=== PATIENT | female | born 1970 | race Caucasian/White ===

== ENCOUNTER 2022-03-21 18:16 | Emergency (ER) | payer MEDICARE, MEDICAID, SELFPAY ==
[2022-03-21 18:18] VITALS: BP 157/73; PULSE 74; RESP 16; TEMP 37.1; O2SAT 98; BMI 27.4
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
--- NOTE | 2022-03-21 18:27 | XR_ITS ---
PROCEDURE INFORMATION: Exam: XR Chest Exam date and time: 03/21/2022 6:32 PM Age: 51 years old Clinical indication: Chest wall pain; Additional info: Left chest wall pain S/P back manipulation TECHNIQUE: Imaging protocol: XR of the chest. Views: 1 view. COMPARISON: No relevant prior studies available. FINDINGS: Airway: Patent Lungs: Unremarkable. No consolidation. Pleural spaces: Unremarkable. No pleural effusion. No pneumothorax. Heart/Mediastinum: Unremarkable. No cardiomegaly. Bones/joints: No acute skeletal abnormality or aggressive osseous lesion. IMPRESSION: No acute findings. COMMENTS: Consider correlation with chest CTA if clinically warranted.
[2022-03-21 18:59] VITALS: BP 157/73; PULSE 74; RESP 16; TEMP 36.8; O2SAT 98
== END 2022-03-21 19:09 | disposition home or self-care (01) ==
PROVIDERS: Emergency Provider Emergency Medicine
DX: M54.12 Radiculopathy, cervical region (principal)
CPT/HCPCS: 71045; 96372; 99283

== ENCOUNTER 2022-09-30 08:36 | Emergency (ER) | payer MEDICARE, MEDICAID, SELFPAY ==
[2022-09-30 08:38] VITALS: BP 153/79; PULSE 68; RESP 16; TEMP 36.9; O2SAT 97; BMI 25.7
[2022-09-30 08:43] VITALS: BP 153/79; PULSE 66; O2SAT 97
--- NOTE | 2022-09-30 08:51 | XR_ITS ---
FINAL REPORT CLINICAL HISTORY: fall, rt rib pain FINDINGS: A single view of the chest with 3 views of the ribs were obtained. There is no acute cardiopulmonary process. No pneumothorax is identified. No displaced rib fracture identified. IMPRESSION: No acute process. Reviewed, Interpreted and Dictated by Henrique Cordon MD Transcribed by Angelina Capellan Authenticated and . [facility]
--- NOTE | 2022-09-30 08:51 | XR_ITS ---
FINAL REPORT CLINICAL HISTORY: fall, rt shoulder pain FINDINGS: Right shoulder Three views were obtained. There is no acute fracture or dislocation. The joint spaces appear normal. No soft tissue abnormality is identified. IMPRESSION: No acute process. Reviewed, Interpreted and Dictated by Henrique Cordon MD Transcribed by Angelina Capellan Authenticated and [facility]
--- NOTE | 2022-09-30 08:52 | PC.NURSE ---
Notified rad of films
--- NOTE | 2022-09-30 08:53 | HMH.EDGENADL ---
Discharge Plan Disposition Patient Disposition: Home, Self-Care Condition: Good Prescriptions Prescriptions: New hydrocodone-acetaminophen 5-325 mg tablet 1 tab PO Q6H PRN (Reason: pain) Qty: 20 0RF Referrals Follow up/Referrals: Provider,Referral, [Primary Care Provider] - See instructions Scout Mckinney DO [Staff Physician] - See instructions Activity Restrictions/Add. Instructions Additional Instructions/Restrictions: Sling for right shoulder for 3 to 5 days. Follow-up with orthopedics, Dr. Mckinney, for further evaluation or possible rotator cuff injury right shoulder and rib fractures. Additional instructions for RIB INJURIES: See your physician as soon as possible for further evaluation. Hold a pillow against your injured ribs to help with pain when coughing or sneezing. Sleep with several pillows to help support you in the most comfortable position. Take deep breaths frequently. Use incentive spirometer 4-5 times a day. Return immediately if shortness of breath, intolerable pain, coughing of blood, abdominal pain or vomiting. Clinical Impressions Clinical Impression: Fracture, rib, Shoulder sprain Instructions Patient Instructions: DI for Rib Fracture, How to Use a Sling, DI for Rotator Cuff Injury Discharge ED Provider: Balwinder Rasmussen General Adult HPI General Chief complaint: Fall Stated complaint: ao 09/28 R shoulder and rib pain Time Seen by Provider: 09/30/22 08:50 Mode of Arrival: Ambulatory Source of Information: Patient Limitations: No Limitations Description of Symptoms (Recalled from ER Triage Doc. by RN): PT advises she fell off of a barstoll Monday night and landed on her right side. Pt c/o pain in the right shoulder and right rib area. No obivous deformity noted during assessment. PT had some bruising and skin tears to the elbow. But denies any pain in the elbow History of Present Illness HPI narrative: Patient states she fell off of a stool on Monday, 2 days ago. She landed on her right side. She has pain in her posterior right shoulder and in her lateral and posterior right ribs. She finds it hard to raise her right arm. Her ribs hurt when she breathes and coughs. She has some abrasions on her right elbow but no pain in the elbow. No numbness or weakness. Related Data Previous Rx's Medication Instructions Recorded hydrocodone 5 mg-acetaminophen 325 1 tab PO Q6H PRN pain #20 tabs 09/30/22 mg tablet Allergies Allergy/AdvReac Type Severity Reaction Status Date / Time Sulfa (Sulfonamide Allergy Verified 03/21/22 18:55 Antibiotics) PFSH [facility] Social History Smoking Status: Never smoker ROS Obtained: Yes Systems reviewed as appropriate & no additional complaints except as documented Constitutional Constitutional: Denies weakness Respiratory Respiratory: Denies shortness of breath, Reports pain on inspiration and Reports pain with cough Musculoskeletal Musculoskeletal: Reports as per HPI and Denies numbness Neurologic Neurologic: Denies numbness and Denies weakness Physical Exam General General appearance: alert and in no apparent distress Head Head exam: atraumatic and normocephalic Chest Chest inspection: Present normal inspection, symmetric chest wall rise and tenderness (Right lateral ribs) Expanded Chest Exam Trauma: Absent crepitus, laceration, abrasion, ecchymosis, wound or penetrating wound Respiratory Respiratory exam: Present normal lung sounds bilaterally; Absent respiratory distress Cardiovascular Cardiovascular exam: Present regular rate Expanded Upper Extremity Exam Right: Comment: Tender posterior right shoulder. No edema, ecchymosis, abrasions, effusion. Distal neurovascular status intact. Can abduct to 90 degrees. Pain when she attempts to abduct further than this. Distal neurovascular status intact. Abrasions right elbow. No effusion. Full range of motion. Neurological Exam Neurological exam: P
[2022-09-30 09:22] VITALS: BP 134/62; PULSE 58; O2SAT 98
--- NOTE | 2022-09-30 09:40 | PC.NURSE ---
Called respiratory for incentive spirometer for patient.
--- NOTE | 2022-09-30 09:45 | PC.NURSE ---
RT at BS for incentive spirometer
[2022-09-30 09:50] VITALS: BP 149/55; PULSE 64; RESP 16; TEMP 36.9; O2SAT 97
== END 2022-09-30 09:53 | disposition home or self-care (01) ==
PROVIDERS: Emergency Provider Emergency Medicine
DX: S43.401A Unspecified sprain of right shoulder joint, initial encounter; S22.31XA Fracture of one rib, right side, initial encounter for closed fracture; W08.XXXA Fall from other furniture, initial encounter; Z88.2 Allergy status to sulfonamides
CPT/HCPCS: 71101; 73030; 99283

== ENCOUNTER → 2023-01-18 16:01 | Outpatient (CLI) | payer MEDICARE, MEDICAID, SELFPAY ==
--- NOTE | 2023-01-18 16:29 | XR_ITS ---
FINAL REPORT CLINICAL HISTORY: right jaw pain COMPARISON: none FINDINGS: Four views of the mandible were obtained. There is no acute fracture or dislocation. No focal bony mass. The joint spaces are intact. There is no soft tissue abnormality. IMPRESSION: No acute fracture Reviewed, Interpreted and Dictated by Cain Mcdonnell III, MD Transcribed by Trupti Reyes Authenticated and [facility]
== END ==
PROVIDERS: PCP Family Medicine; Visit Provider Family Medicine
DX: R68.84 Jaw pain (principal)
CPT/HCPCS: 70110

== ENCOUNTER 2023-06-12 17:15 | Emergency (ER) | payer MEDICARE, MEDICAID, SELFPAY ==
[2023-06-12 17:16] VITALS: BP 160/83; PULSE 78; RESP 18; TEMP 36.8; O2SAT 96; BMI 27.4
[2023-06-12 17:27] LABS: Microscopic, Urine URINE MICROSCOPIC (MICROSCOPIC)
[2023-06-12 17:35] LABS: Appearance,Urine CLOUDY (Clear); Bilirubin,Urine 1+ (Negative); Blood, Urine 3+ (Negative); Color,Urine YELLOW (Yellow); Glucose,Urine (UA) Negative (Negative); Ketones,Urine TRACE (Negative); Leukocyte Esterase,Urine 2+ (Negative); Nitrate,Urine POSITIVE (Negative); PH,Urine 6.5 (5.0-8.5); Protein,Urine 2+ (Negative); Specific Gravity, Urine 1.025 (1.005-1.030)
--- NOTE | 2023-06-12 17:47 | HMH.EDGENADL ---
Discharge Plan Disposition Patient Disposition: Home, Self-Care Prescriptions Prescriptions: New nitrofurantoin monohyd/m-cryst 100 mg capsule 100 mg PO BID 5 Days Qty: 10 0RF Rx Instructions: must administer with a meal/food No Action albuterol sulfate 90 mcg/actuation HFA aerosol inhaler inhalation epinephrine 0.3 mg/0.3 mL auto-injector 0.3 ml SQ .prn Patient Comments: INJECT CONTENTS OF 1 AUTOINJECTOR INTO THE APPROPRIATE MUSCLE 1 TIME DIRECTED BY PRESCRIBER FOR ALLERGIC REACTION allopurinol 100 mg tablet 100 mg PO DAILY fluticasone furoate-vilanterol [Breo Ellipta] 100-25 mcg/dose blister with device 1 inh inhalation Patient Comments: INHALE 1 DOSE 1 TIME EACH DAY atenolol 50 mg tablet 50 mg PO DAILY fluticasone propionate 50 mcg/actuation spray,suspension 1 spray intranasal Patient Comments: SPRAY 2 TIMES IN EACH NOSTRIL 1 TIME EACH DAY hydroxychloroquine 200 mg tablet 200 mg PO DAILY furosemide 20 mg tablet 20 mg PO DAILY Patient Comments: TAKE 1 TABLET 2 TIMES EACH DAY levothyroxine 125 mcg tablet 125 mcg PO DAILY pantoprazole 40 mg tablet,delayed release (DR/EC) 40 mg PO DAILY Patient Comments: TAKE 1 TABLET 2 TIMES EACH DAY cyclobenzaprine 10 mg tablet 10 mg PO DAILY fluoxetine 40 mg capsule 40 mg PO DAILY guaifenesin [Mucinex] 600 mg tablet extended release 12hr 600 mg PO BID cholecalciferol (vitamin D3) 125 mcg (5,000 unit) capsule 125 mcg PO DAILY amoxicillin-pot clavulanate [Augmentin] 500-125 mg tablet 1 tab PO TID Qty: 30 0RF hydrocodone-acetaminophen 5-325 mg tablet 1 tab PO Q6H PRN (Reason: pain) Qty: 20 0RF Referrals Follow up/Referrals: Maico Wahl MD [Primary Care Provider] - See instructions Activity Restrictions/Add. Instructions Additional Instructions/Restrictions: Return with severe back pain or high fevers or without any significant improvement within 1 week. Clinical Impressions Clinical Impression: UTI (urinary tract infection), uncomplicated Instructions Patient Instructions: DI for Urinary Tract Infection (UTI), DI for Urinary Tract Infection in Children Discharge ED Provider: Kathy Villalpando General Adult HPI General Chief complaint: Urogenital-Female Stated complaint: poss UTI,blood in urine Time Seen by Provider: 06/12/23 17:47 Mode of Arrival: Ambulatory Source of Information: Patient Limitations: No Limitations Description of Symptoms (Recalled from ER Triage Doc. by RN): Patient reports a 2 day history of pain with urination. States she thinks she may have a UTI. History of Present Illness HPI narrative: 53-year-old female presenting today with dysuria and some slight hematuria for the last 24 hours. She denies any flank pain or fevers. No significant abdominal pain or any other symptoms. She states she had urinary tract infections in the past and this feels similar. No antibiotic allergies aside from sulfa. Related Data Home Medications Medication Instructions Recorded Confirmed albuterol sulfate 90 mcg/actuation inhalation 01/18/23 02/01/23 aerosol inhaler allopurinol 100 mg tablet 100 mg PO DAILY 01/18/23 02/01/23 atenolol 50 mg tablet 50 mg PO DAILY 01/18/23 02/01/23 cholecalciferol (vitamin D3) 125 125 mcg PO DAILY 01/18/23 02/01/23 mcg (5,000 unit) capsule cyclobenzaprine 10 mg tablet 10 mg PO DAILY 01/18/23 02/01/23 epinephrine 0.3 mg/0.3 mL 0.3 ml SQ .prn 01/18/23 02/01/23 injection, auto-injector fluoxetine 40 mg capsule 40 mg PO DAILY 01/18/23 02/01/23 fluticasone furoate 100 1 inh inhalation 01/18/23 02/01/23 mcg-vilanterol 25 mcg/dose inhalation powder (Breo Ellipta) fluticasone propionate 50 1 spray intranasal 01/18/23 02/01/23 mcg/actuation nasal spray,suspension furosemide 20 mg tablet 20 mg PO DAILY 01/18/23 02/01/23 guaifenesin 600 mg tablet, 600 mg PO BID
[2023-06-12 17:53] LABS: Bacteria,Urine 2+ /lpf; WBC,Urine TNTC #/hpf (0-3)
[2023-06-12 18:08] VITALS: BP 149/75; PULSE 71; RESP 18; TEMP 36.7; O2SAT 99
== END 2023-06-12 18:09 | disposition home or self-care (01) ==
PROVIDERS: Emergency Provider Student in an Organized Health Care Education/Training Program; PCP Family Medicine
DX: N39.0 Urinary tract infection, site not specified (principal); R31.9 Hematuria, unspecified; I10 Essential (primary) hypertension; M10.9 Gout, unspecified
CPT/HCPCS: 81001; 87086; 87088; 87186; 99283

== ENCOUNTER → 2023-06-13 16:50 | Outpatient (CLI) | payer MEDICARE, MEDICAID, SELFPAY ==
[2023-06-13 16:47] LABS: Basophils % 0.5 % (0.1-2.0); Eosinophils # 0.1 K/mm3 (0.0-0.4); Eosinophils % 1.4 % (0.1-12.0); Hematocrit 43.5 % (37.0-47.0); Hemoglobin 13.7 g/dL (12.2-16.2); Lymphocytes # 1.5 K/mm3 (0.7-4.5); Lymphocytes % 24.9 % (10-50); Mean Corpuscular HGB Conc 31.5 g/dL (31.8-35.4); Mean Corpuscular Hemoglobin 31.2 pg (27.0-31.2); Mean Corpuscular Volume 98.9 fl (81-99); Mean Platelet Volume 9.4 fl (7.4-10.4); Monocytes # 0.3 K/mm3 (0.1-1.0); Neutrophils % 68.2 % (37.0-80.0); Platelet Count 160 K/mm3 (142-424); Red Blood Count 4.39 M/mm3 (4.20-5.40); Red Cell Distribution Width 13.5 % (11.5-17.5); White Blood Count 5.8 K/mm3 (4.8-10.8)
[2023-06-13 16:55] LABS: Alanine Aminotransferase 48 U/L (12-78); Albumin/Globulin Ratio 1.2 (1.1-1.8); Alkaline Phosphatase 212 U/L (38-126); Anion Gap 8.9 mEq/L (5-15); Aspartate Amino Transferase 67 U/L (14-36); Bilirubin,Total 1.5 mg/dl (0.2-1.3); Blood Urea Nitrogen 7 mg/dl (7-17); Calcium 8.9 mg/dl (8.4-10.2); Carbon Dioxide 31 mmol/L (22.0-30.0); Chloride 101 mmol/L (98-107); Chol/HDL Ratio 2.3 (1-3.5); Cholesterol 204 mg/dl (140-200); Estimated Glomerular Filt Rate 75 ml/min (>60); GFR (African American) 90 ML/MIN (>60); Globulin 3.3 g/dL (1.3-3.2); Glucose 95 mg/dl (74-100); HDL Cholesterol 87 mg/dl (40-60); Potassium 3.9 mmoL/L (3.5-5.1); Sodium 137 mmol/L (136-145); Total Protein,Serum 7.3 g/dl (6.3-8.2); Triglycerides 129 mg/dl (30-150); VLDL Cholesterol 26 mg/dL (0-40)
[2023-06-13 17:07] LABS: Direct LDL Cholesterol 95.31 mg/dL (100-129)
[2023-06-13 17:26] LABS: Thyroid Stimulating Hormone 3.49 uIU/mL (0.465-4.68)
[2023-06-13 17:45] LABS: Vitamin B12 496 pg/mL (239-931)
== END ==
PROVIDERS: PCP Family Medicine; Visit Provider Family Medicine
DX: I10 Essential (primary) hypertension (principal); E03.9 Hypothyroidism, unspecified; Z00.00 Encounter for general adult medical examination without abnormal findings; E53.8 Deficiency of other specified B group vitamins
CPT/HCPCS: 80053; 80061; 82607; 84443; 85025

== ENCOUNTER → 2023-10-26 11:59 | Outpatient (CLI) | payer MEDICARE, MEDICAID, SELFPAY ==
--- NOTE | 2023-10-26 12:06 | CT_ITS ---
FINAL REPORT TECHNIQUE: Axial images were obtained through the chest without contrast. CLINICAL HISTORY: soa, nodules COMPARISON: None FINDINGS: There are multiple nodules on the left side. There is a 3 mm nodule in the periphery of the left upper lobe, best seen on image #22 of series #2. There is a 3 mm nodule in the left lower lobe, best seen on image #44 of series 2. There is a nodule measuring 4 mm in size in the posterior left lower lobe, best seen on image #47 of series 2. The heart size is normal. There is no pericardial or pleural effusion. Limited images of the upper abdomen are unremarkable. IMPRESSION: Several less than 5 mm in size nodules are present in the chest as described. According to Fleischner criteria, a 1 year follow-up chest CT is recommended. Reviewed, Interpreted and Dictated by Henrique Cordon MD Transcribed by Kenna Garnica Authenticated and [facility]
== END ==
PROVIDERS: PCP Family Medicine; Visit Provider Internal Medicine Pulmonary Disease
DX: J84.9 Interstitial pulmonary disease, unspecified; R06.09 Other forms of dyspnea
CPT/HCPCS: 71250; 94060; 94618; 94726; 94729

== ENCOUNTER 2023-11-15 12:02 | Outpatient (CLI) | payer MEDICARE, MEDICAID, SELFPAY ==
[2023-11-15 12:47] LABS: Eosinophils # 0.1 K/mm3 (0.0-0.4); Eosinophils % 1.7 % (0.1-12.0); Hematocrit 44.2 % (37.0-47.0); Hemoglobin 14.7 g/dL (12.2-16.2); Lymphocytes # 1.2 K/mm3 (0.7-4.5); Lymphocytes % 29.6 % (10-50); Mean Corpuscular HGB Conc 33.3 g/dL (31.8-35.4); Mean Corpuscular Hemoglobin 32.6 pg (27.0-31.2); Mean Corpuscular Volume 98.1 fl (81-99); Mean Platelet Volume 8.3 fl (7.4-10.4); Monocytes # 0.3 K/mm3 (0.1-1.0); Monocytes % 6.2 % (1.7-9.3); Neutrophils # 2.5 K/mm3 (1.8-7.8); Neutrophils % 61.4 % (37.0-80.0); Platelet Count 178 K/mm3 (142-424); White Blood Count 4.1 K/mm3 (4.8-10.8)
[2023-11-18 01:11] LABS: D001-IgE D pteronyssinus 0.14 kU/L (Class 0/I); D002-IgE D farinae 0.12 kU/L (Class 0/I); E072-IgE Mouse Urine 0.34 kU/L (Class I); G002-IgE Bermuda Grass <0.10 kU/L (Class 0); G006-IgE Timothy Grass <0.10 kU/L (Class 0); I006-IgE Cockroach, German 5.25 kU/L (Class IV); Immunoglobulin E, Total 2535 IU/mL (6-495); M001-IgE Penicillium chrysogen <0.10 kU/L (Class 0); M002-IgE Cladosporium herbarum 0.17 kU/L (Class 0/I); M003-IgE Aspergillus fumigatus 1.05 kU/L (Class II); M006-IgE Alternaria alternata <0.10 kU/L (Class 0); T001-IgE Maple/Box Elder 0.47 kU/L (Class I); T003-IgE Common Silver Birch <0.10 kU/L (Class 0); T006-IgE Cedar, Mountain 0.65 kU/L (Class II); T007-IgE Oak, White <0.10 kU/L (Class 0); T008-IgE Elm, American 0.12 kU/L (Class 0/I); T010-IgE Walnut <0.10 kU/L (Class 0); T011-IgE Maple Leaf Sycamore 0.16 kU/L (Class 0/I); T014-IgE Cottonwood 0.12 kU/L (Class 0/I); T015-IgE Ash, White <0.10 kU/L (Class 0); T022-IgE Pecan, Hickory <0.10 kU/L (Class 0); T070-IgE White Mulberry <0.10 kU/L (Class 0); W001-IgE Ragweed, Short <0.10 kU/L (Class 0); W011-IgE Thistle, Russian 0.52 kU/L (Class I); W014-IgE Pigweed, Common 0.11 kU/L (Class 0/I); W018-IgE Sheep Sorrel <0.10 kU/L (Class 0)
[2023-11-29 08:29] LABS: Antinuclear Antibodies (ANA) Negative
== END 2023-11-15 23:59 ==
LOC: LAB 12:03
PROVIDERS: PCP Family Medicine; Visit Provider Internal Medicine Pulmonary Disease
DX: J30.9 Allergic rhinitis, unspecified (principal); J84.9 Interstitial pulmonary disease, unspecified
CPT/HCPCS: 36415; 82785; 85025; 86003; 86038; 86225; 86235

== ENCOUNTER 2024-01-02 19:45 | Outpatient (CLI) | payer MEDICARE, MEDICAID, SELFPAY ==
[2024-01-02 17:15] LABS: T4 (Thyroxine) 6.9 ug/dl (5.53-11.0)
[2024-01-02 17:28] LABS: Thyroid Stimulating Hormone 1.14 uIU/mL (0.465-4.68)
[2024-01-03 17:10] LABS: Thyroglobulin Level <1.0 IU/mL (0.0-0.9)
== END 2024-01-02 23:59 ==
PROVIDERS: PCP Family Medicine; Visit Provider Family Medicine
DX: E03.9 Hypothyroidism, unspecified (principal); R53.83 Other fatigue
CPT/HCPCS: 84436; 84443; 86800

== ENCOUNTER 2024-01-04 10:12 | Outpatient (CLI) | payer MEDICARE, MEDICAID, SELFPAY | END 2024-01-04 23:59 | PROVIDERS: PCP Family Medicine; Visit Provider Nurse Practitioner Family | DX: R00.1 Bradycardia, unspecified (principal); R00.2 Palpitations; R06.09 Other forms of dyspnea | CPT/HCPCS: 93270 ==

== ENCOUNTER 2024-01-19 09:21 | Outpatient (CLI) | payer MEDICARE, MEDICAID, SELFPAY ==
--- NOTE | 2024-01-19 | CA_ITS ---
APPROVED REPORT Exam: Pharmacologic Technologist: Elaine France, Ht: 5 ft 4 in Wt: 170 lbs BSA: 1.83 m2 HR: 56 bpm BP: 154/70 mmHg Rhythm: Sinus bradycardia Indications: Dyspnea Medical History Medical History: HTN Medications: Levothyroxine,,,,, Allopurinol,,,,, Pantoprazole,,,,, Albuterol,,,,, Montelukast,,,,, Vit D3,,,,, Diclofenac,,,,, FluTICASONE,,,,, Fluoxetine,,,,, Cyclobenzaprine,,,,, BREo Eliipta,,,,, Guaifenesin,,,,, Allergies: SULFA Cardiac Risk Factors: HTN Stress Test Details Test: LEXISCAN HR Resting HR: 59 bpm Max Heart Rate (APMHR): 166 bpm Max HR Achieved: 76 bpm Target HR (85% APMHR): 141 bpm % of APMHR: 46 Recovery HR: 61 bpm BP Resting BP: 154/70 mmHg Max BP: 154/70 mmHg Recovery BP: 147.0/69.0 mmHg ECG Resting ECG: Sinus bradycardia Stress ECG: No significant ST changes Arrhythmia: None Clinical Exercise duration: 04:00 min Highest Stage Achieved: Exercise capacity: 1.0 METs Stress ECG Conclusion NO SIGNIFICANT ST CHANGES UNREMARKABLE LEXISCAN STRESS MYOVIEW IMAGES REPORTED SEPARATELY Test Summary REST . . . . . . . Sitting REST 02:34 . . 59 . 154/ 70 . . Stage 1 01:00 . . 73 . . . . Stage 2 01:00 . . 67 . 137/ 71 . . Stage 3 01:00 . . 67 . 133/ 72 . . Stage 4 01:00 . . 66 . 134/ 72 . Stop exercise at 04:00 RECOVERY 01:00 . . 72 . . . . RECOVERY 02:00 . . 61 . 147/ 69 . . RECOVERY 02:26 . . 71 . 147/ 69 . . Electronically signed by : Gabbie Kaufman MD 01/22/2024 22:02:51
--- NOTE | 2024-01-19 09:22 | CA_ITS ---
APPROVED REPORT EXAM: Comprehensive 2D, Doppler, and color-flow Echocardiogram Retail Merchandising Specialist: Charito Hernandez RDCS Ht: 5 ft 4 in Wt: 170lbs BSA: 1.83 BP: 142/78 mmHg Indications: SOA,PALPS M-Mode Dimensions RVDd 1.60 cm (0.9-2.6) LA Diam 3.55 cm (1.9-4.0) LVDd 4.57 cm (3.5-5.7) LVDs 2.91 cm (3.5-5.7) IVSd 0.72 cm (0.6-1.1) PWd 0.78 cm (0.6-1.1) EF (Teich) 66.10% FS 36.30% EDV (Teich) 95.90 mL TAPSE 3.03 (<1.7) ESV (Teich) 32.50 mL LV Diastology E Decel Time 203 (160-240 msec) E/A Ratio 1.3 Mitral Valve MV E Max Jerome. 104.0 (40-130 cm/s) MV A Velocity 78.0 (40-130 cm/s) E/A Ratio 1.33 MV PHT 60.0 ms Left Ventricle The left ventricle is normal size. The left ventricular systolic function is normal. The left ventricular ejection fraction is within the normal range. There is normal left ventricular wall thickness. There is normal LV segmental wall motion. The left ventricular diastolic function is normal. LVEF is 55%. Right Ventricle The right ventricle is normal size. The right ventricular systolic function is normal. Atria The left atrium size is normal. The right atrium size is normal. There is no Doppler evidence of interatrial shunt. Aortic Valve The aortic valve opens well. There is no aortic valvular stenosis. No aortic regurgitation is present. Mitral Valve The mitral valve is normal in structure. No evidence of mitral valve stenosis. Mild mitral regurgitation. Tricuspid Valve The tricuspid valve leaflets are thin and pliable. Trace tricuspid regurgitation. There is insufficient TR jet to estimate RVSP. Pulmonic Valve The pulmonary valve is normal in structure. Trace pulmonic regurgitation. Great Vessels The aortic root is normal in size. The proximal segment of the ascending aorta is normal in size. IVC is normal in size and collapses >50% with inspiration. Pericardium There is no pericardial effusion. Other Information Study Quality: Fair Conclusion Normal biventricular systolic function. Mild MR. Electronically signed by : Gabbie Kaufman MD 01/22/2024 22:30:40
--- NOTE | 2024-01-19 11:07 | NM_ITS ---
APPROVED REPORT Exam: Nuclear Stress Test Indication: SOB, Palpitations, Fatigue, HTN Patient Location: Outpatient Stress Tech: Elaine France CARLY Tech:Sandie CareyringtonJADA RT(R)(N) Ht: 5 ft 4 in Wt: 170 lbs Bra Size: C HR: 59 bpm BP: 154/70 mmHg BSA: 1.83 m2 TID: 1.04 BMI: 29.1 History: SOB, Palpitations, Fatigue, HTN Procedure: Patient received 0.4 mg of intravenous Lexiscan, resting heart rate 59 bpm, resting blood pressure 154/70 mmHg, with Lexiscan maximum heart rate achieved was 76 bpm which is % of the maximum predicted heart rate and blood pressure was 154/70 mmHg. With Lexiscan, patient denied any complaint of chest pain. Cardiac Stress and Resting SPECT Images: Cardiac Stress and Resting SPECT images were obtained using technetium 99m Myoview 30.7 mCi stress and 10.22 mCi at rest. Resting and stress imaging in supine and prone positions demonstrate no evidence of fixed or reversible perfusion defects. Gated imaging demonstrates normal global and regional LV systolic function. LVEF is calculated at 66%. Conclusion: No evidence of fixed or reversible perfusion defects. Gated imaging demonstrates normal global and regional LV systolic function. LVEF is calculated at 66%. Electronically signed by : Gabbie Kaufman MD 01/22/2024 22:04:14
[2024-01-19] MEDS: SODIUM CHLORIDE 0.9% 10ML SYR (RAD ONLY) 10 ML IV ×2 (13:48)
[2024-01-19] MEDS: REGADENOSON 0.4MG/5ML SYRINGE 0.400000000000000022 MG IV (13:48)
[2024-01-19] MEDS: ISOTOPE MYOVIEW (PER STUDY) 1 DOSE IV (13:48)
== END 2024-01-19 23:59 ==
PROVIDERS: PCP Family Medicine; Visit Provider Nurse Practitioner Family
DX: R00.1 Bradycardia, unspecified (principal); R06.09 Other forms of dyspnea; R00.2 Palpitations
CPT/HCPCS: 78452; 93017; 93018; 93306; A9502; J2785

== ENCOUNTER 2024-02-23 10:01 | Outpatient (CLI) | payer MEDICARE, MEDICAID, SELFPAY ==
[2024-02-23 12:51] LABS: Iron 158 ug/dL (37-170)
[2024-02-23 13:28] LABS: Ferritin 163 ng/ml (11.1-264)
[2024-02-23 14:30] LABS: Total Iron Binding Capacity 312 ug/dL (265-497)
== END 2024-02-23 23:59 ==
LOC: LAB 10:02
PROVIDERS: PCP Family Medicine; Visit Provider Nurse Practitioner Family
DX: E83.10 Disorder of iron metabolism, unspecified (principal)
CPT/HCPCS: 36415; 82728; 83540; 83550

== ENCOUNTER 2024-04-17 09:54 | Outpatient (CLI) | payer MEDICARE, MEDICAID, SELFPAY ==
[2024-04-17 11:53] LABS: Chloride 102 mmol/L (98-107); Potassium 4.1 mmoL/L (3.5-5.1); Sodium 136 mmol/L (136-145)
[2024-04-17 11:54] LABS: Albumin Level 3.9 g/dl (3.5-5.0)
[2024-04-17 11:56] LABS: Anion Gap 12.1 mEq/L (5-15); Blood Urea Nitrogen 21 mg/dl (7-17); Calcium 9.4 mg/dl (8.4-10.2); Carbon Dioxide 26 mmol/L (22.0-30.0); Estimated Glomerular Filt Rate 65 ml/min (>60); GFR (African American) 79 ML/MIN (>60); Glucose 98 mg/dl (74-100); Magnesium 2.1 mg/dl (1.6-2.3); Phosphorous 3.1 mg/dl (2.5-4.5)
[2024-04-17 12:25] LABS: Thyroid Stimulating Hormone 3.79 uIU/mL (0.465-4.68)
[2024-04-19 17:09] LABS: Osteocalcin 25.1 ng/mL (5.0-29.5)
[2024-04-22 16:12] LABS: C-Telopeptide Serum 424 pg/mL (.)
[2024-04-24 14:21] LABS: Tandem-R Ostase 38.4 ug/L (.)
[2024-04-27 10:38] LABS: Serial Monitoring PDF SCANNED IMAGE
== END 2024-04-17 23:59 | disposition home or self-care (01) ==
LOC: LAB 09:55
PROVIDERS: Internal Medicine; PCP Family Medicine; Visit Provider Family Medicine
DX: E03.9 Hypothyroidism, unspecified (principal); M85.89 Other specified disorders of bone density and structure, multiple sites
CPT/HCPCS: 36415; 80069; 82523; 83735; 83937; 84080; 84443

== ENCOUNTER 2024-04-29 10:30 | Outpatient (CLI) | payer MEDICARE, MEDICAID, SELFPAY ==
--- NOTE | 2024-04-29 10:38 | XR_ITS ---
FINAL REPORT CLINICAL HISTORY: Dyspnea. Wheezing. Chronic pneumonia. COMPARISON: None FINDINGS: No acute pulmonary density is evident. There is no evidence of effusion or other pleural disease. The mediastinum has a normal appearance. The cardiac silhouette is unremarkable. IMPRESSION: Unremarkable chest exam. Reviewed, Interpreted and Dictated by Carmen Cabrera MD Transcribed by Kenna Garnica Authenticated and [facility]
== END 2024-04-29 23:59 | disposition home or self-care (01) ==
LOC: RAD 10:33
PROVIDERS: PCP Family Medicine; Visit Provider Nurse Practitioner Family
DX: R06.09 Other forms of dyspnea (principal)
CPT/HCPCS: 71046

== ENCOUNTER 2024-07-09 15:05 | Outpatient (CLI) | payer MEDICARE, MEDICAID, SELFPAY ==
[2024-07-09 17:32] LABS: Albumin Level 3.9 g/dl (3.5-5.0); Anion Gap 10.8 mEq/L (5-15); Blood Urea Nitrogen 9 mg/dl (7-17); Calcium 9.2 mg/dl (8.4-10.2); Carbon Dioxide 26 mmol/L (22.0-30.0); Chloride 105 mmol/L (98-107); Estimated Glomerular Filt Rate 87 ml/min (>60); GFR (African American) 105 ML/MIN (>60); Glucose 76 mg/dl (74-100); Magnesium 1.8 mg/dl (1.6-2.3); Phosphorous 2.9 mg/dl (2.5-4.5); Potassium 3.8 mmoL/L (3.5-5.1); Sodium 138 mmol/L (136-145)
[2024-07-12 15:24] LABS: Osteocalcin 9.6 ng/mL (5.0-29.5)
[2024-07-12 16:30] LABS: Creatinine, Urine 54.7 mg/dL (Not Estab.); N-Telo/Creat. Ratio 18 (0-89); N-Telopeptide 88 nmol BCE (Not Estab.)
[2024-07-16 05:08] LABS: Tandem-R Ostase 37.3 ug/L (.)
[2024-07-18 21:51] LABS: C-Telopeptide Serum 139 pg/mL (.)
[2024-07-19 12:24] LABS: Serial Monitoring PDF SCANNED IMAGE
== END 2024-07-09 23:59 | disposition home or self-care (01) ==
LOC: LAB 15:07
PROVIDERS: PCP Family Medicine; Visit Provider Internal Medicine
DX: M85.89 Other specified disorders of bone density and structure, multiple sites (principal)
CPT/HCPCS: 36415; 80069; 82523; 82570; 83735; 83937; 84080

== ENCOUNTER 2024-08-08 11:19 | Outpatient (CLI) | payer MEDICARE, MEDICAID, SELFPAY | END 2024-08-08 23:59 | disposition home or self-care (01) | LOC: LAB.DROPOF 08-09 14:53 | PROVIDERS: PCP Family Medicine; Visit Provider Family Medicine | DX: R39.9 Unspecified symptoms and signs involving the genitourinary system (principal); N39.0 Urinary tract infection, site not specified | CPT/HCPCS: 87086 ==

== ENCOUNTER 2024-12-20 10:32 | Outpatient (CLI) | payer MEDICARE, MEDICAID, SELFPAY ==
[2024-12-19 16:26] LABS: Coronavirus 19, PCR Not Detected (NotDetected); Human Rhinovirus Not Detected (NotDetected); Influenza A, PCR Not Detected (NotDetected); Influenza B, PCR Not Detected (NotDetected); Respiratory Syncytial Virus Not Detected (NotDetected)
--- NOTE | 2024-12-20 10:36 | XR_ITS ---
FINAL REPORT CLINICAL HISTORY: cough; sob COMPARISON: 04/29/2024 FINDINGS: No acute pulmonary density is evident. There is no evidence of effusion or other pleural disease. The mediastinum has a normal appearance. The cardiac silhouette is unremarkable. IMPRESSION: Unremarkable chest exam. Reviewed, Interpreted and Dictated by Carmen Cabrera MD Transcribed by Radha Kramer Authenticated and [facility]
== END 2024-12-20 23:59 | disposition home or self-care (01) ==
LOC: LAB 10:33
PROVIDERS: PCP Family Medicine; Visit Provider Family Medicine
DX: R06.02 Shortness of breath (principal); R06.09 Other forms of dyspnea
CPT/HCPCS: 71046; 87631

== ENCOUNTER 2025-04-02 09:05 | Outpatient (CLI) | payer MEDICARE, MEDICAID, SELFPAY ==
[2025-04-02 17:45] LABS: Basophils % 0.9 % (0.1-2.0); Eosinophils # 0.1 Kmm3 (0.0-0.4); Eosinophils % 2.9 % (0.1-12.0); Hematocrit 40.9 % (37.0-47.0); Hemoglobin 13.4 g/dL (12.2-16.2); Immature Granulocytes # 0.02 10^3uL; Immature Granulocytes % 0.4 %; Lymphocytes # 1.4 K/mm3 (0.7-4.5); Lymphocytes % 31.2 % (10-50); Mean Corpuscular HGB Conc 32.8 g/dL (31.8-35.4); Mean Corpuscular Hemoglobin 32.4 pg (27.0-31.2); Mean Corpuscular Volume 98.8 fl (81-99); Mean Platelet Volume 10.6 fl (7.4-10.4); Monocytes # 0.5 K/mm3 (0.1-1.0); Monocytes % 10.1 % (1.7-9.3); Neutrophils # 2.5 K/mm3 (1.8-7.8); Neutrophils % 54.5 % (37.0-80.0); Nucleated Red Blood Cells # 0 10^3/uL; Nucleated Red Blood Cells % 0 %; Platelet Count 177 K/mm3 (142-424); Red Blood Count 4.14 M/mm3 (4.20-5.40); Red Cell Distribution Width 13.2 % (11.5-17.5); Red Cell Distribution Width-SD 47.8 fL; White Blood Count 4.6 K/mm3 (4.8-10.8)
[2025-04-02 19:14] LABS: Alanine Aminotransferase 34 U/L (12-78); Albumin Level 4.2 g/dl (3.5-5.0); Albumin/Globulin Ratio 1.4 (1.1-1.8); Alkaline Phosphatase 121 U/L (38-126); Aspartate Amino Transferase 50 U/L (14-36); Bilirubin,Total 0.7 mg/dl (0.2-1.3); Blood Urea Nitrogen 21 mg/dl (7-17); Calcium 8.7 mg/dl (8.4-10.2); Carbon Dioxide 28 mmol/L (22.0-30.0); Chloride 98 mmol/L (98-107); Chol/HDL Ratio 2.6 (1-3.5); Cholesterol 164 mg/dl (140-200); Estimated Glomerular Filt Rate 65 ml/min (>60); GFR (African American) 79 ML/MIN (>60); Globulin 2.9 g/dL (1.3-3.2); Glucose 66 mg/dl (74-100); HDL Cholesterol 62 mg/dl (40-60); Sodium 134 mmol/L (136-145); Total Protein,Serum 7.1 g/dl (6.3-8.2); Triglycerides 143 mg/dl (30-150); VLDL Cholesterol 29 mg/dL (0-40)
[2025-04-02 19:17] LABS: Anion Gap 12.1 mEq/L (5-15); Potassium 4.1 mmoL/L (3.5-5.1)
[2025-04-02 19:25] LABS: Direct LDL Cholesterol 63.44 mg/dL (100-129)
[2025-04-02 19:49] LABS: Thyroid Stimulating Hormone 3.02 uIU/mL (0.465-4.68)
[2025-04-02 19:57] LABS: HIV Combo NEGATIVE (Negative)
[2025-04-02 20:09] LABS: Hepatitis C Ab Qual. W/ RFX NEGATIVE (Negative); Vitamin B12 601 pg/mL (239-931)
== END 2025-04-02 23:59 | disposition home or self-care (01) ==
LOC: LAB.DROPOF 23:01
PROVIDERS: PCP Family Medicine; Visit Provider Family Medicine
DX: I10 Essential (primary) hypertension (principal); Z11.4 Encounter for screening for human immunodeficiency virus [HIV]; Z11.59 Encounter for screening for other viral diseases
CPT/HCPCS: 80053; 80061; 82607; 84443; 85025; 86803; 87389

== ENCOUNTER 2025-04-23 09:52 | Outpatient (CLI) | payer MEDICARE, MEDICAID, SELFPAY ==
--- NOTE | 2025-04-23 09:54 | XR_ITS ---
FINAL REPORT CLINICAL HISTORY: low back pain COMPARISON: None FINDINGS: LUMBAR SPINE: AP and lateral views of the lumbar spine were obtained. There is no prior exam for comparison. There is no acute fracture or malalignment. Vertebral body height is preserved. There is mild disc space narrowing at the L3-4, L4-5, and L5-S1 levels. Mild multilevel facet sclerosis is present. No acute paraspinal abnormality. IMPRESSION: Mild degenerative change as described without acute bony abnormality. Reviewed, Interpreted and Dictated by Henrique Cordon MD Transcribed by Kenna Garnica Authenticated and [facility]
--- OUTSIDE RECORDS SUMMARY | 2025-04-23 09:55 | XMS_ITS | Encounter Summary ---
Author Organization Healthcare Address [address] [place] [address] Care Team Providers Care Medical Staff Coordinator Name Role Phone Maico Wahl MD Primary Care Provider [phone]- [phone] Encounter Details Date Type Department Care Team (Late st Contact Info) Description 04/16/2024 [facility] [address] [place] [address] Maico Wahl MD [address] [place] [address] Social History Tobacco Use Types Packs/Day Years Used Date Smoking Tobacco: Never Smokeless Tobacco: Never Alcohol Use Standard Drinks/Week Comments Yes 10 (1 standard drink = 0.6 oz pu re alcohol) PHQ-2 Answer Date Recorded Patient Health Questionnaire-2 Score 0 02/09/2024 PHQ-2A Answer Date Recorded Patient Health Questionnaire-2 Score 0 06/22/2023 Comments No Sex and Gender Information Value Date Recorded Sex Assigned at Not on file Legal Sex Female 7:56 PM EDT Gender Identity Not on file Sexual Orientation Not on file documented as of this encounter Plan of Treatment Upcoming Encounters Date Type Department Care Team (Late st Contact Info) Description 05/21/2025 9:00 AM EDT Office Visit [facility] [address] [place] [address] Johana Young MD [address] [place] [address] 01/13/2026 1:00 PM EST Appointment [facility] [address] [place] [address] 01/13/2026 2:00 PM EST Office Visit [facility] [address] [facility] [place] [address] Lily Zuniga, CUFF MATCHER [address] [facility] [address] [place] [address] documented as of this encounter Visit Diagnoses Not on filedocumented in this encounter Additional Health Concerns Assessment Noted Time A fall risk assessment has been complete d for the patient 02/09/2024 11:31 AM EDT A Body Mass Index follow-up plan has been documented for the patient 02/09/2024 12:04 PM EDT documented as of this encounter Care Teams Medical Staff Coordinator Relationship Specialty Start Date End Date Maico Wahl MD [address] [place] [id number] PCP - General Family Medicine 10/10/23 documented as of this encounter
--- OUTSIDE RECORDS SUMMARY | 2025-04-23 09:55 | XMS_ITS | Encounter Summary ---
Author Organization Healthcare Address [address] [place] [address] Care Team Providers Care Fixed Wing Aircraft Crew Chief Name Role Phone Maico Wahl MD Primary Care Provider +1- [phone] Reason for Referral * Consultation (Routine) - Closed Specialty Diagnoses / Procedures Referred By Contmichael t Referred To Contact Dentist / Pain Medicine Diagnoses JAMISON (obstructive sleep apnea) Debbie Rodriguez MD [address] [place] [address] Phone: tel: fax: Annalise Collins, DDS [address] [place] [address] Phone: tel: fax: Referral ID Status Reason Start Date Expiration Date Visits Re quested Visits Authorized [id number] Closed 02/28/2024 08/29/2025 1 1 Encounter Details Date Type Department Care Team (Late st Contact Info) Description 02/28/2024 [facility] [address] [place] [address] Debbie Rodriguez MD [address] [address] JAMISON (obstructive sleep apnea) (Primary Dx) Social History Tobacco Use Types Packs/Day Years [...] Description 05/21/2025 9:00 AM EDT Office Visit [facility] [address] [place] [address] Johana Young MD [address] [place] [address] 01/13/2026 1:00 PM EST Appointment [facility] [place] [address] [address] [facility] [address] [place] [address] 01/13/2026 2:00 PM EST Office Visit [facility] [address] [facility] [place] [address] Lily Zuniga, SUPERVISING LIBRARIAN [address] [facility] [address] [address] Scheduled Referrals Name Type Priority Associated Diagnoses Order Schedule Ambulatory Referral to Orofacial Pain Outpatient Referral Routine JAMISON (obstructive sleep apnea) Expected: 02/28/2024 (Approximate), Expires: 08/29/2025 documented as of this encounter Visit Diagnoses Diagnosis JAMISON (obstructive sleep apnea)- Primary Obstructive sleep apnea (adult) (pediatric) documented in this encounter Additional Health Concerns Assessment Noted Time A fall risk assessment has been complete d for the patient 02/09/2024 11:31 AM EDT A Body Mass Index follow-up plan has been documented for the patient 02/09/2024 12:04 PM EDT documented as of this encounter Care Teams Fixed Wing Aircraft Crew Chief Relationship Specialty Start Date End Date Maico Wahl MD [address] [place] [address] PCP - General Family Medicine 10/10/23 documented as of this encounter
--- OUTSIDE RECORDS SUMMARY | 2025-04-23 09:55 | XMS_ITS | Clinical Summary ---
Author Organization [employer] Address [address] [place] [address] Care Team Providers Care Meat And Seafood Clerk Name Role Phone Unavailable Primary Care Provider Unavailabl e Allergies Active Allergy Reactions Criticality Noted Date Comments Sulfa (Sulfonamide Antibiotics) 08/13 Social History Tobacco Use Types Packs/Day Years Used Date Smoking Tobacco: Never Assessed Interpersonal Safety Answer Date Record ed Family or friends hurt you Not on file 12/01 Family or friends insult you Not on file Family or friends threaten you Not on file 0 12/01/2023 Family or friends scream or curse at you Not on file 12/01/2023 Housing Stability Answer Date Recorded Living situation today Not on file Living situation problems Not on file 2023 Family and Community Support Answer Pan e Recorded Help with Day to Day Activities Not on file 12/01/2023 Feeling Lonely or Isolated Not on file 12/01 Educational Attainment Answer Date Lamin rded Speak language other than Zimbabwean at home Not on file 12/01/2023 Want help with school or training Not on file 12/01/2023 Depression Answer Date Recorded PHQ-2 Risk Not on file 12/01/2023 Disabilities Answer Date Recorded Difficulty concentrating Not on file 024 Difficulty doing errands alone Not on file 0 12/01/2023 Substance Use Answer Date Recorded Used prescription meds for non-medical reasons N ot on file 12/01/2023 Used illegal drugs past 12 months Not on file 12/01/2023 Comments Unknown Sex and Gender Information Value Date Recorded Sex Assigned at Not on file Legal Sex Female 10:24 AM CDT Gender Identity Not on file Sexual Orientation Not on file Last Filed Vital Signs Vital Sign Reading Time Taken Comments Blood Pressure 142/89 08/22/2022 9:13 AM EDT Pulse 77 08/22/2022 9:13 AM EDT Temperature 36.3 C (97.3 F) 08/22/2022 9:03 AM EDT Respiratory Rate 18 08/22/2022 9:13 AM EDT Oxygen Saturation 97% 08/22/2022 9:13 AM EDT Inhaled Oxygen Concentration - - Weight 68 kg (150 lb) 08/22/2022 8:10 AM EDT Height 162.6 cm (5' 4 ) 08/22/2022 8:10 AM EDT Body Mass Index 25.75 08/22/2022 8:10 AM EDT Plan of Treatment Health Maintenance Due Date Last Done Comments Medicare Initial AWV [id number] CT Colonography 1969 Colonoscopy 1969 Colorectal Cancer Screening 1969 FOBT/FIT 1969 Fit-DNA (Cologuard) 1969 Sigmoidoscopy 1969 Depression Screening (12+) 1981 Tobacco Cessation Counseling and Screening (12+) 06/04 HIV Screening 1984 Hepatitis C Screening 1987 DTAP/TDAP/TD VACCINES (1 - Tdap) 1988 Pap Smear 1990 Breast Cancer Screening 2009 Pneumococcal 50+ years (1 of 1 - PCV) 2019 Shingles Vaccine (Zoster) (1 of 2) 2019 COVID-19 VACCINE (1 - season) 2024 Influenza Vaccine (Season Ended) 2025 Lipid Panel 08/02/2027 08/02/2022 [place] [id number] [place] [address] MEDICARE [place] A B [place]
--- OUTSIDE RECORDS SUMMARY | 2025-04-23 09:55 | XMS_ITS | Clinical Summary ---
Author Organization [facility] Address [address] [place] [address] Care Team Providers Care Deputy Insurance Commissioner Name Role Phone Maico Wahl MD Primary Care Provider [phone] Allergies Active Allergy Reactions Criticality Noted Date Comments Sulfa Drugs Hives,Swelling High 05/17/2018 Medications albuterol 108 (90 Base) MCG/ACT inhaler Inhale 2 puffs every 4 (four) hours as needed. 1 Active atenolol (Tenormin) 50 MG tablet Take 1 tablet (50 mg) by mouth 1 (one) time each day. 6 Active FLUoxetine (PROzac) 40 MG capsule Take 1 capsule (40 mg) by mouth 1 (one) time each day. 6 Active furosemide (Lasix) 20 MG tablet Take 1 tablet (20 mg) by mouth twice a day. 6 Active levothyroxine (Synthroid, Levoxyl) 125 MCG tablet Take 1 tablet (125 mcg) by mouth 1 (one) time each day. 1 Active pantoprazole (Protonix) 40 MG EC tablet Take 1 tablet (40 mg) by mouth twice a day. 1 Active cyclobenzaprine (Flexeril) 10 MG tablet Take 1 tablet (10 mg) by mouth as needed. 2 Active fluticasone-wale anterol (BREO ELIPTA) 100-25 MCG/INH inhaler Inhale 1 puff 1 (one) time each day. 2 Active fluticasone (Flonase) 50 MCG/ACT nasal spray Administer 2 sprays into affected nostril(s) 1 (one) time each day. 2 Active allopurinol (Zyloprim) 100 MG tablet TAKE 1 TABLET 1 TIME EACH DAY 3 Active cholecalciferol (Vitamin D-3) 25 MCG (1000 UT) tablet Take 1 tablet (1,000 Units) by mouth 1 (one) time each day. 2 Active EPINEPHrine (Epipen) 0.3 MG/0.3ML injection syringe Inject 0.3 mL (0.3 mg) into the muscle. 3 Active ibuprofen 800 MG tablet TAKE 1 TABLET EVERY 8 HOURS WITH FOOD NEEDED 3 Active guaiFENesin (Mucinex) 600 MG 12 hr tablet 1 tablet (600 mg). 3 Active montelukast (Singulair) 10 MG tablet TAKE 1 TABLET 1 TIME EACH DAY IN THE EVENING 4 Active diclofenac (Voltaren) 1 % topical gel Place 2-4 g on the skin 2 (two) times a day. Apply 2-4 grams to upper and lower extremities four times a day. (max of 32 grams per day) 100 g 1 4 Active Active Problems Problem Noted Date Diagnosed Date BOOP (bronchiolitis obliterans with organizing p neumonia) 02/10/2024 Osteopenia of multiple sites 01/15/2024 Chronic obstructive pulmonary disease, unspecifi ed 08/17/2023 Mild intermittent asthma with acute exacerbation 05/22/2023 06/22/2023 Malignant neoplasm of right breast in female, estrogen receptor negative 12/28/2021 Cancer Staging:Clinical stage from 12/28/2007:Stage IA(T1c, N0, M0) - Unsigned Acid reflux 12/28/2021 Adult hypothyroidism 12/28/2021 Depression 12/28/2021 Essential hypertension 12/28/2021 Obesity 12/28/2021 Scleroderma 12/28/2021 Clinical diagnosis of severe acute respiratory syndrome coronavirus 2 (SARS-CoV-2) disease 11/15/[address] scan of lung 07/02/2021 Overview (12/28/2021): Unresolving right lower lobe infiltrate Hemoptysis 05/24/2021 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 02/25/2021 HNP (herniated nucleus pulposus), cervical 02/25 Hypertrophic polyarthritis 11/03/2020 JAMISON (obstructive sleep apnea) 06/05/2019 Recurrent major depressive disorder, in partial remission 12/05/2018 Palpitations 10/23/2018 Fibromyalgia 08/30/2016 Hemangioma 08/30/2016 Lupus 08/30/2016 06/22/2023 Microscopic hematuria 07/26/2016 Rheumatoid arthritis 11/13/2015 06/22/2023 Immunizations Immunization Administration Dates Next Due Influenza, injectable, MDCK, preservative free, quadrivalent 10/25/2019,08/28/2018 Influenza, injectable, quadrivalent 09/09/2022,1 Influenza, injectable, quadr ivalent, preservative free 08/18/2023,10/13/2021,07/28/2020,2016,08/25/2016 Influenza, intradermal, quad rivalent, preservative free 10/25/2019,08/28/2018 [employer] COVID-19 Vac cine (Purple Cap) 12+ 02/16/2021,01/26/2021 Family History Medical History Relation Name Comments Other cancer Father Prostate cancer Father Family histo ry of malignant neoplasm of prostate Liver cancer Mother Family history of liver cancer Lung cancer Mother Family history of lung cancer Other cancer Mother Breast cancer Mother's Sister 1 Throat cancer Mother's Sister 1 Breast cancer Mother's Sister 2 Stroke Other Relation Name Status Comments Father Mother Mother's Sister 1 Mother's Sister 2 Other Social History Tobacco Use Types Packs/Day Years Used Date Smoking Tobacco: Never Smokeless Tobacco: Never Tobacco Cessation:Counseling Given: Not Answered Alcohol Use Standard Drinks/Week Comments Yes 10 (1 standard drink = 0.6 oz pu re alcohol) PHQ-2 Answer Date Recorded Patient Health Questionnaire-2 Score 0 01/09/2025 PHQ-2A Answer Date Recorded Patient Health Questionnaire-2 Score 0 06/22/2023 Comments No Sex and Gender Information Value Date Recorded Sex Assigned at Not on file Legal Sex Female 7:56 PM EDT Gender Identity Not on file Sexual Orientation Not on file Last Filed Vital Signs Vital Sign Reading Time Taken Comments Blood Pressure 147/84 01/09/2025 10:26 AM EST Pulse 66 01/09/2025 10:26 AM EST Temperature 37.1 C (98.7 F) 01/09/2025 10:26 AM EST Respiratory Rate 16 01/09/2025 10:2 6 AM EST Oxygen Saturation 98% 01/09/2025 10: 26 AM EST Inhaled Oxygen Concentration - - Weight 73.8 kg (162 lb 11.2 oz) 025 10:26 AM EST Height 162.6 cm (5' 4 ) 01/09/2025 8:30 AM EST Body Mass Index 27.93 01/09/2025 8:30 AM EST Plan of Treatment Upcoming Encounters Date Type Department Care Team (Late st Contact Info) Description 05/21/2025 9:00 AM EDT Office Visit [facility] [address] [place] [address] Johana Young MD [address] [place] [address] 01/13/2026 1:00 PM EST Appointment [facility] [place] [address] Lissa Hoskins [facility] [address] [place] [address] 01/13/2026 2:00 PM EST Office Visit [facility] [address] [facility] [place] [address] Lily Zuniga, COOKER SULFATE [address] [facility] Lissa Pat[address] [address] Health Maintenance Due Date Last Done Comments [facility]-HIV Screening 1970 [facility]-Hepatitis C Screening 1969 [facility]-Infant/Child/Adol SDOH Screenings 1969 [facility]- SDOH Screenings 1987 [facility]-Adult SDOH Screenings 1987 [facility]-DTaP,Tdap,and Td Vaccines (1 - Tdap) 1988 [facility]-Hepatitis B Vaccines (1 of 3 - 19+ 3-dose series) 1988 [facility]-Pneumococcal Vaccine: 50+ Years (1 of 2 - PCV) 1988 [facility]-Zoster Vaccines (1 of 2) 1988 [facility]-Pap Smear 1990 [facility]-Cervical Cancer Screening 1999 [facility]-HPV/Cotest 1999 CT Colonography 2014 Colonoscopy 2014 FIT-DNA 2014 FIT 2014 FOBT 2014 Sigmoidoscopy 2014 [facility]-Colorectal Cancer Screening 2014 [id number] Vaccine (3 - Pfizer risk series) 03/16/2021 02/16/2021, 01/26/2021 [facility]-Medicare Annual Wellness (AWV) 02/14/2023 02/14/2022, 02/10/2021, 11/26/2019 [facility]-Influenza Vaccine (Season Ended) 2025 08/18/2023, 09/09/2022, 10/13/2021, Additional history exists [facility]-Depression Screening 01/09/2026 01/09/2025 [facility]-Obesity Intervention Completed 024, 01/05/2024, 12/28/2023, Additional history exists HPV Vaccines Aged Out No longer eligi ble based on patient's age to complete this topic [facility]-HIB Vaccines Aged Out No longer e ligible based on patient's age to complete this topic [facility]-Hepatitis A Vaccines Aged Out No longer eligible based on patient's age to complete this topic [facility]-IPV Vaccines Aged Out No longer e ligible based on patient's age to complete this topic [facility]-Rotavirus Vaccines Aged Out No lo nger eligible based on patient's age to complete this topic Insurance * Guarantor: Jaqueline Vleasco Account Type Relation to Patient Date of Phone Billing Address Personal/Family Self 1970 [address] [place] [address] MED[place]ARE [place] Care Teams Deputy Insurance Commissioner Relationship Specialty Start Date End Date Maico Wahl MD [address] [place] [address] PCP - General Family Medicine 10/10/23
--- OUTSIDE RECORDS SUMMARY | 2025-04-23 09:55 | XMS_ITS | Referral Summary ---
Author Organization [facility] Address [address] [place] [place] [address] Care Team Providers Care Electrical Cad Technician Name Role Phone Unavailable Primary Care Provider [...] Date Lamin rded Speak language other than Qatari at home Not on file 12/01/2023 Want [...] 08/22/2022 8:10 AM EDT Plan of Treatment Not on file Insurance MEDICARE PART A B MEDICAID OF [place]
== END 2025-04-23 23:59 | disposition home or self-care (01) ==
LOC: RAD 09:53
PROVIDERS: PCP Family Medicine; Visit Provider Family Medicine
DX: M51.370 Other intervertebral disc degeneration, lumbosacral region with discogenic back pain only (principal); M48.07 Spinal stenosis, lumbosacral region; M47.817 Spondylosis without myelopathy or radiculopathy, lumbosacral region
CPT/HCPCS: 72100

== ENCOUNTER 2025-06-06 17:50 | Emergency (ER) | payer MEDICARE, MEDICAID, SELFPAY ==
--- OUTSIDE RECORDS SUMMARY | 2021-04-13 09:45 | XMS_ITS | Encounter Summary ---
[facility] [address] [place] [address] Care Team Providers Care General Counselor Name Role Phone Nicole Noriega MD Primary Care Provider [phone] Encounter Details Date Type Department Care Team (Late st Contact Info) Description 04/13/2021 9:45 AM EDT Hospital Encounter [facility] MEDICINE [address] [place] [address] Social History Tobacco Use Types Packs/Day [...] documented as of this encounter Care Teams General Counselor Relationship Specialty Start Date End Date Nicole Noriega MD PCP - General Family Medicine 08/25/17 07/20/23 documented as of this encounter
--- OUTSIDE RECORDS SUMMARY | 2021-04-13 09:51 | XMS_ITS | Encounter Summary ---
[facility] [address] [place] [address] Care Team Providers Care Armed Guard Name Role Phone Nicole Noriega MD Primary Care Provider [phone] Encounter Details Date Type Department Care Team (Late st Contact Info) Description 04/13/2021 9:51 AM EDT Hospital Encounter [facility] MEDICINE [address] [place] [address] Social History Tobacco Use Types Packs/Day [...] documented as of this encounter Care Teams Armed Guard Relationship Specialty Start Date End Date Nicole Noriega MD PCP - General Family Medicine 08/25/17 07/20/23 documented as of this encounter
--- OUTSIDE RECORDS SUMMARY | 2022-02-14 11:32 | XMS_ITS | Encounter Summary ---
[facility] Address [address] [place] [address] Care Team Providers Care It Software Engineer Name Role Phone Nicole Noriega MD Primary Care Provider [phone] Encounter Details Date Type Department Care Team (Late st Contact Info) Description 02/14/2022 11:32 AM EDT Hospital Encounter [facility] MEDICINE [address] [place], [place] [...] Diagnosis Comments XR CHEST 2 VW Routine 02/14/2022 11:38 AM EDT BOOP (bronchiolitis obliterans with organizing pneumonia) documented in this encounter Results * XR Chest 2 View (02/14/2022 11:38 AM EDT) Anatomical Region Laterality Modality Body N/A Radiographic Daija ging 02/14/2022 1:53 PM EDT Impressions 02/14/2022 2:20 PM EDT Stable chest. No active intrathoracic disease or areas of pneumonia are demonstrated at this time. This report was finalized on 02/14/2022 2:[address] Jamey Kendall II, MD. Narrative 02/14/2022 2:20 PM EDT XR CHEST 2 VW- REASON FOR EXAM: BOOP; J84.89-Other specified interstitial pulmonary diseases COMPARISON: Previous chest dated 04/13/2021. FINDINGS: The cardiac silhouette and mediastinum are stable in size and shape. The lungs are mildly hyperinflated, no inflammatory changes are noted in the lungs. There were no pleural effusions or signs of heart failure. Procedure Note Jamey Kendall II, MD - 02/14/2022 XR CHEST 2 VW- REASON FOR EXAM: BOOP; J84.89-Other specified interstitial pulmonary diseases COMPARISON: Previous chest dated 04/13/2021. FINDINGS: The cardiac silhouette and mediastinum are stable in size and shape. The lungs are mildly hyperinflated, no inflammatory changes are noted in the lungs. There were no pleural effusions or signs of heart failure. IMPRESSION: Stable chest. No active intrathoracic disease or areas of pneumonia are demonstrated at this time. This report was finalized on 02/14/2022 2:[address] Jamey Kendall II, MD. us Nicole Noriega MD IMG DIAGNOSTIC IMAGING ORDER MAYKEL Final Result documented in this encounter Visit Diagnoses Not on filedocumented in this encounter Care Teams It Software Engineer Relationship Specialty Start Date End Date Nicole Noriega MD PCP - General Family Medicine 08/25/17 07/20/23 documented as of this encounter
--- OUTSIDE RECORDS SUMMARY | 2022-06-09 08:41 | XMS_ITS | Encounter Summary ---
[facility] [address] [place] [address] Care Team Providers Care Starch Cooker Name Role Phone Nicole Noriega MD Primary Care Provider [phone] Encounter Details Date Type Department Care Team (Late st Contact Info) Description 06/09/2022 8:41 AM EDT Hospital Encounter [facility] MED[facility] [address] [place] [phone] Social History Tobacco Use Types Packs/Day Years [...] Priority Date/Time Associated Diagnosis Comments XR CHEST PA AND LATERAL Routine 06/09/2022 8:43 AM EDT Organized pneumonia Rheumatoid arthritis, involving unspecified site, unspecified whether rheumatoid factor present Scleroderma Mild intermittent asthma with acute exacerbation Gastroesophageal reflux disease without esophagitis documented in this encounter Results * XR Chest PA & Lateral (06/09/2022 8:43 AM EDT) Anatomical Region Laterality Modality Body, Chest N/A Radiographic Daija ging Narrative 06/09/2022 9:04 AM EDT Jaqueline Chavez Krista [id number] 06/09/2022 Chest X-Ray PA & Lateral Indication: Chest pain Findings: Lungs are clear. No effusions. Heart and mediastinum unremarkable. Left seventh rib notable for hairline fracture. No pneumothorax. Interpretation: Fractured left seventh rib, no other acute cardiopulmonary process. Catracho Bhardwaj DO Please note that portions of this note may have been completed with a voice recognition program. Efforts were made to edit the dictations, but occasionally words are mistranscribed. us Garcia Bhardwaj DO IMG DIAGNOSTIC IMAG ING ORDERABLES Final Result documented in this encounter Visit Diagnoses Not on filedocumented in this encounter Care Teams Starch Cooker Relationship Specialty Start Date End Date Nicole Noriega MD PCP - General Family Medicine 08/25/17 07/20/23 documented as of this encounter
--- NOTE | 2025-06-06 18:06 | HMH.EDGENADL ---
Discharge Plan Disposition Patient Disposition: Home, Self-Care Prescriptions Prescriptions: No Action epinephrine 0.3 mg/0.3 mL auto-injector 0.3 ml SQ .prn Patient Comments: INJECT CONTENTS OF 1 AUTOINJECTOR INTO THE APPROPRIATE MUSCLE 1 TIME DIRECTED BY PRESCRIBER FOR ALLERGIC REACTION cholecalciferol (vitamin D3) 125 mcg (5,000 unit) capsule 125 mcg PO DAILY cyclobenzaprine 10 mg tablet 10 mg PO DAILY PRN montelukast 10 mg tablet 10 mg PO QPM 90 Days Qty: 90 2RF diclofenac sodium 1 % gel topical Incruse Ellipta 62.5 mcg/actuation blister with device 1 inh inhalation DAILY 90 Days Qty: 90 3RF fluticasone propionate 50 mcg/actuation spray,suspension 2 spray intranasal DAILY Qty: 16 3RF albuterol sulfate 90 mcg/actuation HFA aerosol inhaler See Rx Instructions .ROUTE .COMPLEX Qty: 6.7 1RF Dose Instruction: INHALE 2 PUFFS EVERY 4 TO 6 HOURS NEEDED FOR SHORTNESS OF BREATH OR WHEEZING Rx Instructions: INHALE 2 PUFFS EVERY 4 TO 6 HOURS NEEDED FOR SHORTNESS OF BREATH OR WHEEZING fluticasone furoate-vilanterol [Breo Ellipta] 200-25 mcg/dose blister with device See Rx Instructions .ROUTE .COMPLEX Qty: 180 2RF Dose Instruction: INHALE 1 DOSE ONCE A DAY Rx Instructions: INHALE 1 DOSE ONCE A DAY albuterol sulfate 2.5 mg /3 mL (0.083 %) solution for nebulization 2.5 mg inhalation Q6H Qty: 75 2RF pantoprazole 40 mg tablet,delayed release (DR/EC) See Rx Instructions .ROUTE .COMPLEX Qty: 90 1RF Dose Instruction: TAKE 1 TABLET 1 TIME EACH DAY Rx Instructions: TAKE 1 TABLET 1 TIME EACH DAY azelastine 137 mcg (0.1 %) spray,non-aerosol See Rx Instructions .ROUTE .COMPLEX Qty: 30 2RF Dose Instruction: SPRAY 2 TIMES IN EACH NOSTRIL 1 TIME EACH DAY AT BEDTIME. Rx Instructions: SPRAY 2 TIMES IN EACH NOSTRIL 1 TIME EACH DAY AT BEDTIME. atenolol 50 mg tablet See Rx Instructions .ROUTE .COMPLEX Qty: 90 0RF Dose Instruction: TAKE 1 TABLET 1 TIME EACH DAY Rx Instructions: TAKE 1 TABLET 1 TIME EACH DAY furosemide 20 mg tablet See Rx Instructions .ROUTE .COMPLEX Qty: 90 0RF Dose Instruction: TAKE 1 TABLET 1 TIME EACH DAY Rx Instructions: TAKE 1 TABLET 1 TIME EACH DAY fluoxetine 40 mg capsule See Rx Instructions .ROUTE .COMPLEX Qty: 90 0RF Dose Instruction: TAKE 1 CAPSULE 1 TIME EACH DAY Rx Instructions: TAKE 1 CAPSULE 1 TIME EACH DAY levothyroxine 125 mcg tablet See Rx Instructions .ROUTE .COMPLEX Qty: 90 0RF Dose Instruction: TAKE 1 TABLET 1 TIME EACH DAY Rx Instructions: TAKE 1 TABLET 1 TIME EACH DAY Referrals Follow up/Referrals: aMico Wahl MD [Primary Care Provider, Internal Medicine] - See instructions Robert Ortiz MD [Referring, Medical] - See instructions Activity Restrictions/Add. Instructions Additional Instructions/Restrictions: As we discussed I am referring you to a vascular surgeon. Please contact him for your referral appointment. If you have any new persistent or worsening signs or symptoms please follow-up with your PCP return to the ER as needed. Clinical Impressions Clinical Impression: Venous vascular malformations Instructions Patient Instructions: DI for Skin Abscess Print Language Print Language: [place] Discharge ED Provider: Tawanda Sharpe General Adult HPI <BASIM Vargas - Last Filed: 06/06/25 18:59> General Chief complaint: Skin/Abscess/Foreign Body Stated complaint: vein in left left ruptured has knot Time Seen by Provider: 06/06/25 18:06 History of Present Illness HPI narrative: Patient presents for evaluation of a bleeding vein. Patient states that yesterday she abruptly had bleeding from a venous complex in her left lateral lower extremity. Patient has had multiple lesions like this for years but is never been evaluated. Yesterday she does not know what she did but noted that she was suddenly bleeding from this complex. They eventually were able to get the bleeding stopped but wanted to check to make sure that there was not a blood clot. She denies any shortness of breath fever chills hemoptysis hematochezia melena nausea vomiting diarrhea. Related Data Home Medications ?Medication ?Instructions ?Recorded ?Confirmed cholecalciferol (vitamin D3) 125 125 mcg PO DAILY 01/18/23 04/29/25 mcg (5,000 unit) capsule epinephrine 0.3 mg/0.3 mL 0.3 ml SQ .prn 01/18/23 04/29/25 injection, auto-injector cyclobenzaprine 10 mg tablet 10 mg PO DAILY PRN 01/04/24 04/29/25 diclofenac sodium 1 % topical gel topical 01/04/24 04/29/25 Previous Rx's ?Medication ?Instructions ?Recorded montelukast 10 mg tablet 10 mg PO QPM 90 days #90 tabs 01/02/24 umeclidinium 62.5 mcg/actuation 1 inh inhalation DAILY 90 days #90 08/16/24 blister powder for inhalation ea (Incruse Ellipta) fluticasone propionate 50 2 spray intranasal DAILY #16 grams 08/28/24 mcg/actuation nasal spray,suspension albuterol sulfate 90 mcg/actuation See Rx Instructions .Route 09/30/24 aerosol inhaler .COMPLEX #6.7 grams fluticasone furoate 200 See Rx Instructions .Route 12/03/24 mcg-vilanterol 25 mcg/dose .COMPLEX #180 blisters inhalation powder (Breo Ellipta) albuterol sulfate 2.5 mg/3 mL 2.5 mg (3 mL) inhalation Q6H #75 mL 12/23/24 (0.083 %) solution for nebulization azelastine 137 mcg (0.1 %) nasal See Rx Instructions .Route 02/21/25 spray .COMPLEX #30 mL pantoprazole 40 mg tablet,delayed See Rx Instructions .Route 02/21/25 release .COMPLEX #90 tabs atenolol 50 mg tablet See Rx Instructions .Route 03/11/25 .COMPLEX #90 tabs fluoxetine 40 mg capsule See Rx Instructions .Route 03/11/25 .COMPLEX #90 caps furosemide 20 mg tablet See Rx Instructions .Route 03/11/25 .COMPLEX #90 tabs levothyroxine 125 mcg tablet See Rx Instructions .Route 03/11/25 .COMPLEX #90 tabs Allergies Allergy/AdvReac Type Severity Reaction Status Date / Time Sulfa (Sulfonamide Allergy Verified 04/29/25 08:27 Antibiotics) [facility] <BASIM Vargas - Last Filed: 06/06/25 18:59> [facility] Disclaimer: The information contained in this section may have been updated after the patient was seen, as this information can be updated by other users. Medical History (Updated 06/06/25 @ 18:14 by BASIM Vargas) Low back pain Allergic rhinitis Asthma History of asthma Dyspnea on exertion Breast cancer, right breast Palpitations Right-sided temporomandibular joint pain-dysfunction syndrome Fibromyalgia History of lump of right breast History of right breast cancer Lupus Organized pneumonia Hypertension Gout Breast cancer Surgical History History of tubal ligation History of delivery Family History Mother Cancer lung and liver cancer Father Cancer prostate Social History Smoking Status: Never smoker second hand exposure: No alcohol intake: current alcohol intake frequency: a few times a week substance use type: denies use current occupational status: disabled Travel in the last 8 weeks?: None household members: spouse housing: house marital status: Have you lived/traveled outside US in past 30 days?: No Contact w/someone who lives/traveled outside US past 30 days?: No Exposure to someone with infectious disease in past 14 days?: No Do you have a fever (greater than 100.4 F or 38 C)?: No Have you tested positive for COVID-19?: No Exposed to someone with COVID-19 in past 14 days?: No Do you have a sore throat?: No Do you have a cough?: No Do you have any weakness?: No Do you have any diarrhea?: No Are you experiencing any unusual bleeding?: No Do you have any muscle aches/pain?: No Do you have any abdominal pain?: No Are you experiencing loss of taste or smell?: No Other Medical History Have you received the Flu Vaccine for this season: Yes Have you received the Pneumonia Vaccine: No <BASIM Vargas - Last Filed: 06/06/25 18:59> ROS Obtained: Yes Systems reviewed as appropriate & no additional complaints except as documented Physical Exam <BASIM Vargas - Last Filed: 06/06/25 18:59> General General appearance: alert and in no apparent distress Respiratory Respiratory exam: Present normal lung sounds bilaterally Cardiovascular Cardiovascular exam: Present regular rate Neurological Exam Neurological exam: Present alert and oriented X3 Medical Decision Making <BASIM Vargas - Last Filed: 06/06/25 18:59> Medical Records Medical records reviewed: Yes I reviewed the patient's medical records. Screening: Per USPSTF and CDC recommendations, given the prevalence of disease in our region, it is our hospital?s policy to screen for HIV and viral Hepatitis for all patients aged 18 and over and those with ongoing risk factors. Syed Inquiry Pt receiving controlled substance: No Vital Signs: 06/06/25 18:14 06/06/25 19:08 Temperature 98 F 98 F Temperature Source Oral Oral Pulse Rate 85 Pulse Rate [Left Brachial] 85 Respiratory Rate 15 16 Blood Pressure 111/61 Blood Pressure [Left Arm] 111/61 Blood Pressure Mean [Left Arm] 77 Blood Pressure Source Automatic Cuff Blood Pressure Source [Left Arm] Automatic Cuff Blood Pressure Position Sitting Blood Pressure Position [Left Arm] Sitting 02 Sat by Pulse Oximetry 95 Oxygen Delivery Method Room Air Room Air Medical Decision Narrative: In summary patient is a 55-year-old female who presents to the emergency department for evaluation of spontaneous superficial bleeding. Patient is hemodynamically stable upon arrival, afebrile. Physical exam shows a venous malformation at the lateral aspect of her left knee. Patient has numerous of these complexes over her bilateral lower extremities however. There is no active bleeding no cellulitis no induration no erythema.. Differential diagnosis includes venous malformation versus venous lymphatic malformation Cetera. Initial workup and intervention was considered however patient is currently hemodynamically stable and has not currently bleeding thus initial workup and intervention was deferred. Given this I had interactive and shared decision-making discussion with the patient regarding her symptoms is that she has multiple venous malformations that are superficial. It is possible that rebleeding could occur however currently I feel she is safe for discharge with instructions on how to manage with direct pressure. I will also refer the patient onto vascular surgery for possible ablation. Patient verbalized understanding and agreement. <Tawanda Sharpe MD - Last Filed: 06/07/25 10:03> Vital Signs: 06/06/25 18:14 06/06/25 19:08 Temperature 98 F 98 F Temperature Source Oral Oral Pulse Rate 85 Pulse Rate [Left Brachial] 85 Respiratory Rate 15 16 Blood Pressure 111/61 Blood Pressure [Left Arm] 111/61 Blood Pressure Mean [Left Arm] 77 Blood Pressure Source Automatic Cuff Blood Pressure Source [Left Arm] Automatic Cuff Blood Pressure Position Sitting Blood Pressure Position [Left Arm] Sitting 02 Sat by Pulse Oximetry 95 Oxygen Delivery Method Room Air Room Air Medical Decision Narrative: In summary patient is a 55-year-old female who presents to the emergency department for evaluation of spontaneous superficial bleeding. Patient is hemodynamically stable upon arrival, afebrile. Physical exam shows a venous malformation at the lateral aspect of her left knee. Patient has numerous of these complexes over her bilateral lower extremities however. There is no active bleeding no cellulitis no induration no erythema.. Differential diagnosis includes venous malformation versus venous lymphatic malformation Cetera. Initial workup and intervention was considered however patient is currently hemodynamically stable and has not currently bleeding thus initial workup and intervention was deferred. Given this I had interactive and shared decision-making discussion with the patient regarding her symptoms is that she has multiple venous malformations that are superficial. It is possible that rebleeding could occur however currently I feel she is safe for discharge with instructions on how to manage with direct pressure. I will also refer the patient onto vascular surgery for possible ablation. Patient verbalized understanding and agreement. I was consulted by the MIESHA, and we discussed the complexity of the problems being addressed. I approve the treatment and management plan for this patient's care in the emergency department, thus performing a substantive portion of the medical decision making. Tawanda Sharpe MD Critical Care <BASIM Vargas - Last Filed: 06/06/25 18:59> Critical Care Time Critical Care Time: No
--- OUTSIDE RECORDS SUMMARY | 2025-06-06 18:11 | XMS_ITS | Clinical Summary ---
Author Organization [facility] Address [address] [place] [address] Care Team Providers Care Logging Supervisor Name Role Phone Maico Wahl MD Primary Care Provider Rashida vailable Allergies Active Allergy Reactions Criticality Noted Date [...] Influenza, intradermal, quad rivalent, preservative free 10/25/2019,08/28/2018 [employer] COVID-19 Vac cine (Purple Cap) 12+ 02/16/2021,01/26/2021 [...] Care Team (Late st Contact Info) Description 01/13/2026 1:00 PM EST Appointment [facility] [place] [address] Lissa Hoskins [facility] [address] [place] [address] 01/13/2026 2:00 PM EST Office Visit [facility] [address] [facility] [place] [address] Lily Zuniga, HAND LENS POLISHER [address] [facility] [address] [place] [address] Health Maintenance Due Date Last Done Comments [facility]-HIV Screening 1970 [facility]-Hepatitis C Screening 1970 [facility]-/Child/Adol SDOH Screenings 1970 [facility]- SDOH Screenings 1987 [...] 2014 Sigmoidoscopy 2014 [facility]-Colorectal Cancer Screening 2014 [id number] Vaccine (3 - Pfizer risk series) 03/16/2021 02/16/2021, 01/26/2021 [facility]-Medicare Annual Wellness (AWV) 02/14/2023 02/14/2022, 02/10/2021, 11/26/2019 [facility]-Influenza Vaccine (#1) 07/14/202508/18, 09/09/2022, 10/13/2021, Additional history exists [facility]-Depression Screening [...] patient's age to complete this topic Insurance MEDICARE [place] Care Teams Logging Supervisor Relationship Specialty Start Date End Date Maico Wahl MD PCP - General Family Medicine 10/10/23
--- OUTSIDE RECORDS SUMMARY | 2025-06-06 18:12 | XMS_ITS | Referral Summary ---
Author Organization [employer] ([place], [place], [place], [place]) Address [address] [place] [address] Care Team Providers Care Repairer Controller Tester Name Role Phone Unavailable Primary Care Provider Unavailabl e Allergies Active Allergy Reactions Criticality Noted Date Comments Sulfa (Sulfonamide Antibiotics) 08/13 Social History Tobacco Use Types Packs/Day Years Used Date Smoking Tobacco: Never Assessed Family and Community Support Answer Pan e Recorded Help with Day to Day Activities Not on file 12/01/2023 Feeling Lonely or Isolated Not on file 12/01 Educational Attainment Answer Date Lamin rded Speak language other than [place] at home Not on file 12/01/2023 Want help with school or training Not on file 12/01/2023 Substance Use Answer Date Recorded Used [...]
--- OUTSIDE RECORDS SUMMARY | 2025-06-06 18:12 | XMS_ITS | Encounter Summary ---
Author Organization Healthcare Address [address] [place] [address] Care Team Providers Care Geography Head Name Role Phone Maico Wahl MD Primary Care Provider Rashida vailable Reason for Referral * Consultation (Routine) - Closed Specialty Diagnoses / Procedures Referred By Contac t Referred To Contact Dentist / Pain Medicine Diagnoses JAMISON (obstructive sleep apnea) Debbie Rodriguez MD [address] [place] [address] Phone: tel: fax: Annalise Collins, DDS [address] [place] [address] Phone: tel: fax: Referral ID Status Reason Start Date Expiration Date Visits Re quested Visits Authorized [id number] Closed 02/28/2024 08/29/2025 1 1 Encounter Details Date Type Department Care Team (Late st Contact Info) Description 02/28/2024 Community [facility] [address] [place] [address] Debbie Rodriguez MD [address] [place] [address] JAMISON (obstructive sleep apnea) (Primary Dx) [...] [facility] [address] [place] [address] 01/13/2026 2:00 PM EST Office Visit [facility] [address] [facility], 2nd [place] [address] Lily Zuniga, TIPPLE SUPERVISOR [address] [facility] [address] [place] [address] Scheduled Referrals Name Type Priority Associated Diagnoses [...] documented as of this encounter Care Teams Geography Head Relationship Specialty Start Date End Date Maico Wahl MD PCP - General Family Medicine 10/10/23 documented as of this encounter
--- OUTSIDE RECORDS SUMMARY | 2025-06-06 18:12 | XMS_ITS | Clinical Summary ---
Author Organization [employer] ([place], [place], [place], [place]) Address [address] [place] [address] Care Team Providers Care Collection Support Specialist Name Role Phone Unavailable Primary Care Provider [...] Date Lamin rded Speak language other than Vincentian at home Not on file 12/01/2023 Want [...] VACCINE (1 - season) 2024 Influenza Vaccine (#1) 2025 Lipid Panel 08/02/2027 08/02/2022 Insurance MEDICARE PART A B MEDICAID OF [place]
--- OUTSIDE RECORDS SUMMARY | 2025-06-06 18:12 | XMS_ITS | Encounter Summary ---
Author Organization Healthcare Address [address] [place] [address] Care Team Providers Care Kier Operator Name Role Phone Maico Wahl MD Primary Care Provider Rashida vailable Encounter Details Date Type Department Care Team (Late Contact Info) Description 04/16/2024 Community [facility] [address] [place] [address] Maico Wahl MD Social History Tobacco Use Types Packs/Day Years [...] Encounters Date Type Department Care Team (Late Contact Info) Description 01/13/2026 1:00 PM EST Appointment [facility] [place] [address] [address] [facility] [address] [place] [address] 01/13/2026 2:00 PM EST Office Visit [facility] [address] [facility], 2nd [place] [address] Lily Zuniga, IN HOUSE CRA [address] [facility] [address] [place] [address] documented as of this encounter Visit Diagnoses Not on filedocumented in this encounter Additional Health Concerns Assessment Noted Time A fall risk assessment has been complete d for the patient 02/09/2024 11:31 AM EDT A Body Mass Index follow-up plan has been documented for the patient 02/09/2024 12:04 PM EDT documented as of this encounter Care Teams Kier Operator Relationship Specialty Start Date End Date Maico Wahl MD PCP - General Family Medicine 10/10/23 documented as of this encounter
--- OUTSIDE RECORDS SUMMARY | 2025-06-06 18:12 | XMS_ITS | Clinical Summary ---
Author Organization [facility] Address [address] [place] [address] Care Team Providers Care Epic Prelude Analyst Name Role Phone Unavailable Primary Care Provider Unavailabl e Allergies Active Allergy Reactions Criticality Noted Date Comments Sulfamethoxazole-Trimethoprim Swelling High 2015 Throat swelling Sulfa Antibiotics Hives,Swelling Medium 05/17/2018 Medications Fluticasone Furoate-Vilanterol (Breo Ellipta) 100-25 MCG/INH inhalerIndications :Mild intermittent asthma with acute exacerbation Inhale 1 puff Daily. 60 each 5 06/09/20 22 Active cyclobenzaprine (FLEXERIL) 10 MG tabletIndications: Cervical neck pain with evidence of disc disease Take 1 tablet by mouth 2 (Two) Times a Day As Needed for Muscle Spasms. 60 tablet 2 08/02/20 22 Active cholecalciferol (Vitamin D, Cholecalciferol,) 25 MCG (1000 UT) tablet Take 1 tablet by mouth Daily. (OTC) 90 tablet 10/03/20 22 Active albuterol sulfate HFA 108 (90 Base) MCG/ACT inhalerIndications :Seasonal allergic rhinitis due to other allergic trigger Inhale 2 puffs Every 4 (Four) Hours As Needed for Wheezing. 18 g 5 12/09/19 23 Active atenolol (TENORMIN) 50 MG tabletIndications: Essential hypertension Take 1 tablet by mouth Daily. 90 tablet 1 12/09/19 23 Active EPINEPHrine (EPIPEN) 0.3 MG/0.3ML solution auto-injector injection Inject 0.3 mL into the appropriate muscle as directed by prescriber 1 (One) Time As Needed (anaphylaxis) for up to 1 dose. 1 each 12/09/19 Active FLUoxetine (PROzac) 40 MG capsuleIndications :Recurrent major depressive disorder, in partial remission Take 1 capsule by mouth Daily. 90 capsule 1 12/09/19 Active fluticasone (FLONASE) 50 MCG/ACT nasal sprayIndications:S easonal allergic rhinitis due to other allergic trigger 2 sprays into the nostril(s) as directed by provider Daily. 16 g 5 12/09/19 Active furosemide (LASIX) 20 MG tabletIndications: Essential hypertension Take 1 tablet by mouth 2 (Two) Times a Day. 180 tablet 1 12/09/19 Active levothyroxine (SYNTHROID, LEVOTHROID) 125 MCG tabletIndications: Other specified hypothyroidism Take 1 tablet by mouth Daily. 90 tablet 1 12/09/19 Active pantoprazole (PROTONIX) 40 MG EC tabletIndications: Gastroesophageal reflux disease without esophagitis Take 1 tablet by mouth 2 (Two) Times a Day. 180 tablet 1 12/09/19 Active allopurinol (ZYLOPRIM) 100 MG tabletIndications: Other secondary acute gout of multiple sites Take 1 tablet by mouth Daily. 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 02/25/2021 HNP (herniated nucleus pulposus), cervical 02/25 Abdominal pain 11/03/2020 Overview (11/03/2020): Description: Epigastrium Diarrhea 11/03/2020 Overview (12/03/2020): Non-Regulatory IMO with [facility]/CMS designations Hypertrophic polyarthritis 11/03/2020 JAMISON (obstructive sleep apnea) 06/05/2019 Other fatigue 12/17/2018 Recurrent major depressive disorder, in partial remission 12/05/2018 Palpitations 10/23/2018 Precordial pain 10/23/2018 Microscopic hematuria 07/26/2016 Rheumatoid arthritis 11/13/2015 Obesity Adult hypothyroidism Essential hypertension Acid reflux Fibromyalgia Depression Scleroderma Resolved Problems Problem Noted Date Diagnosed Date Resolved Date Organized pneumonia 01/05/2022 12/07/19 23 Hemoptysis 05/24/2021 12/07/2022 Dyspnea on exertion 10/23/2018 05/22/20 23 Immunizations Immunization Administration Dates Next Due COVID-19 (Getonic) Purple Cap Monovalent 02/17/20 21,01/26/2021 Flu Vaccine Intradermal Quad 18-64YR 10/25/2019, 08/28/2018 Flu Vaccine Quad PF >36MO 08/24/2017,08/25/2016 Fluzone (or Fluarix & Flulav al for VFC) >6mos 10/13/2021,07/28/2020,08/24/2017 Fluzone Quad >6mos (Multi-dose) 09/09/2022,08/25 Influenza, Unspecified 09/09/2022 flucelvax quad pfs =>4 YRS 10/25/2019,08/28/2018 Family History Medical History Relation Name Comments Cystic fibrosis Daughter Cancer Father PROSTATE Breast cancer Maternal Aunt 1 Breast cancer Maternal Aunt 2 Stroke Maternal Grandmother HX MIN I STROKES , PER PT Cancer Mother LUNG; LIVER Arthritis Sister Relation Name Status Comments Daughter Alive Father Other Maternal Aunt 1 Maternal Aunt 2 Maternal Grandmother Mother Sister Alive Son Alive Social History Tobacco Use Types Packs/Day Years [...] Sign Reading Time Taken Comments Blood Pressure 128/86 12/09/2022 10:49 AM EST Pulse 77 12/09/2022 10:49 AM EST Temperature 35.9 C (96.6 F) 12/09/2022 10:49 AM EST Respiratory Rate 18 11/16/2021 11:25 AM EST Oxygen Saturation 98% 12/09/2022 10:49 AM EST Inhaled Oxygen Concentration - - Weight 71.9 kg (158 lb 9.6 oz) 12/09/2022 10:49 AM EST Height 162.6 cm (5' 4 ) 12/09/2022 10:49 AM EST Body Mass Index 27.22 12/09/2022 10:49 AM EST Plan of Treatment Health Maintenance Due Date Last Done Comments Pneumococcal Vaccine 50+ (1 of 2 - PCV) 1988 COLOGUARD 2014 COLON CANCER SCREENING 5 Y[address] SIGMO[address] COLONOGRAPHY 2014 FECAL OCCULT BLOOD TEST 2014 FIT Testing (1 year) 2014 HEPATITIS C SCREENING 05/03/2016 ZOSTER VACCINE (1 of 2) 2019 Annual Gynecologic Pelvic an d Breast Exam 04/28/2021 04/27/2020 ANNUAL WELLNESS VISIT 02/14/2023 02/14/2022 , 02/10/2021, 11/26/2019 PAP SMEAR 04/27/2023 04/27/2020, 05/18/2016 COVID-19 Vaccine (3 - 2023-2 5 season) 2024 02/16/2021, 01/26/2021 TDAP/TD VACCINES (2 - Td or Tdap) 02/24/2025 02/24/2015 (Patient-Reported (Performed Externally)) INFLUENZA VACCINE 08/13/2025 08/17/2023, , 09/09/2022, Additional history exists MAMMOGRAM 01/08/2026 01/08/2024, 12/15, 12/29/2022, Additional history exists COLONOSCOPY 01/07/2030 01/07/2020, 01/07/2020 COLORECTAL CANCER SCREENING 01/07/2030 Procedures Procedure Name Priority Date/Time Associated Diagnosis Comments PAP IG, RFX HPV ASCU ([facility] LAB) Routine 04/27/2020 11:16 AM EDT Encounter for well woman exam with routine gynecological exam SCANNED - COLONOSCOPY 01/07/2020 MAMMO DIAGNOSTIC DIGITAL TOMOSYNTHESIS RIGHT W CAD Routine 03/07/2017 10:05 AM EDT Breast mass in female from Last 3 Months or Most Recently Relevant to Health Maintenance Results * Pap IG, Rfx HPV ASCU (04/27/2020 11:16 AM EDT) Diagnosis Comment [facility] Comment:NEGATIVE FOR INTRAEP ITHELIAL LESION OR MALIGNANCY. Specimen adequacy: Comment [facility] Comment: Satisfactory for evaluation. Endocervical and/or squamous metaplastic cells (endocervical component) are present. Clinician Provided ICD-10: Comment [facility] Comment:Z01.419 Performed by: Comment [facility] Comment:Domingo Marie chnologist (ASC) . . [facility] Note: Comment [facility] Comment: The Pap smear is a screening test designed to aid in the detection of premalignant and malignant conditions of the uterine cervix. It is not a diagnostic procedure and should not be used as the sole means of detecting cervical cancer. Both false-positive and false-negative reports do occur. Method: Comment [facility] Comment: This liquid based ThinPrep(R) pap test was screened with the use of an image guided system. Conv .conv Comment [facility] Comment: The HPV DNA reflex criteria were not met with this specimen result therefore, no HPV testing was performed. ThinPrep Vial Specimen from cervix or vagina / Unknown 04/27/2020 11:16 AM EDT 04/28/2020 Comment:THINPREP SPECIMEN SO U Narrative [facility] (AMBULATORY) - 04/29/2020 8:07 PM EDT Performed at: [address] [place] [id number] Assignment Desk Assistant: Emily Delaney MD, Phone: [phone] Specimen Comment: [id number] Specimen Comment: Source.............Cervix Specimen Comment: LMP / Prev Treat...None Specimen Comment: Other..............Post Menopausal Specimen Comment: No. of containers..01 ThinPrep Vial Nicole Aguilera MD PATHOLOGY/CYTOLOGY ORDERABLE S Final Result [facility] [address] [place] [address], [place] [phone] [facility] [address] [place] [id number], [place] [phone] * SCANNED - COLONOSCOPY (01/07/2020) Nicole Aguilera MD CHART REVIEW TABS Final R esult * (ABNORMAL) Mammo Diagnostic Digital Tomosynthesis Right With CAD (03/07/2017 10:05 AM EDT) Anatomical Region Laterality Modality Breast Right Mammography 03/08/2017 9:22 AM EDT Impressions 03/08/2017 9:26 AM EDT 1. Interval lumpectomy changes since 2007 with no mammographic or tomographic abnormality noted right breast. 2. Probable lumpectomy-related scarring and fat necrosis in area of clinical concern right breast. 3. If patient's reported clinical abnormality is a new finding, and patient is approximately 9 years removed from lumpectomy, MRI may be indicated to further evaluate. 4. BI-RADS Category 0: Incomplete MANAGEMENT: Recall for additional imaging: Breast MRI COMMUNICATION: Per this report Decision to biopsy or reevaluate with imaging should be based on clinical grounds. This report was finalized on 03/08/2017 9:[address] Lux Roque MD. Narrative 03/08/2017 9:26 AM EDT EXAMINATION: MAMMO DIAGNOSTIC DIGITAL TOMOSYNTHESIS RIGHT W CAD-, US BREAST RIGHT LIMITED- EXAM DATE: 03/07/2017 REFERRING PROVIDER: NICOLE AGUILERA CLINICAL INDICATION: History of right breast cancer; new mass on side of right breast at 11 where incision site was.; [id number] lump in breast DIAGNOSTIC RIGHT UNILATERAL MAMMOGRAM WITH CAD AND TOMOSYNTHESIS: COMPARISON EXAMS: 12/07/2007. TECHNIQUE: Routine RIGHT digital CC and MLO views were obtained. CAD and Breast Tomosynthesis utilized FINDINGS: Breast Composition: There are scattered areas of fibroglandular density. Important Findings: Since prior exam, interval lumpectomy changes are noted. Mass upper outer quadrant right breast has been removed. Breast parenchyma has significantly decreased in density with more fatty replacement now noted. Surgical clips are seen marking lumpectomy bed. No mammographic abnormality in area of clinical concern aside from expected lumpectomy-related scarring. No suspicious calcifications or areas of architectural distortion. No dominant masses or skin thickening. Patient was then brought for RIGHT breast ultrasound. RIGHT BREAST ULTRASOUND LIMITED: COMPARISON: Mammogram from same day. TECHNIQUE: Multiple sonographic images obtained of the RIGHT breast. Color doppler implemented. Imaging focused to area of clinical/imaging concern. FINDINGS: Corresponding to area of palpable concern, there is no discrete measurable mass. Heterogeneous and somewhat hypoechoic tissue with shadowing is noted and appears fairly characteristic sonographically for lumpectomy-related changes with fat necrosis. However, if patient notes a clinical symptomatic change in this region, and being 9 years removed from lumpectomy, MRI should BE considered to further evaluate. No fluid collection noted. us Nicole Aguilera MD IM MAMMOGRAPHY ORDERABLES F inal Result from Last 3 Months or Most Recently Relevant to Health Maintenance Insurance MEDICARE A & B MEDICAID [place]
[2025-06-06 18:14] VITALS: BP 111/61; PULSE 85; RESP 15; TEMP 36.6; O2SAT 95; BMI 27.4
[2025-06-06 19:08] VITALS: BP 111/61; PULSE 85; RESP 16; TEMP 36.6; O2SAT 95
== END 2025-06-06 19:09 | disposition home or self-care (01) ==
LOC: ER 18:10
PROVIDERS: Emergency Provider Student in an Organized Health Care Education/Training Program; PCP Family Medicine
DX: Q27.32 Arteriovenous malformation of vessel of lower limb (principal)
CPT/HCPCS: 99282

== ENCOUNTER 2025-07-18 09:44 | Outpatient (CLI) | payer MEDICARE, MEDICAID, SELFPAY ==
--- OUTSIDE RECORDS SUMMARY | 2021-04-13 09:45 | XMS_ITS | Encounter Summary ---
[facility] Address [address] [place] [address] Care Team Providers Care Certified Nuclear Medicine Technologist Name Role Phone Nicole Noriega MD Primary Care Provider [phone] Encounter Details Date Type Department Care Team (Late st Contact Info) Description 04/13/2021 9:45 AM EDT Hospital Encounter [facility] MED[facility]INE [address] [place] [phone] Social History Tobacco Use Types Packs/Day Years Used Date Smoking Tobacco: Never Smokeless Tobacco: Never Alcohol Use Standard Drinks/Week Comments Yes 0 (1 standard drink = 0.6 oz pur e alcohol) OCCASIONAL PHQ-2 Answer Date Recorded Retired PHQ-9: Brief Depression Severity Measure Score 1 12/09/2022 Abuse Screen Answer Date Recorded Unsafe at Home or Work/School Not on file Feels Threatened by Someone? Not on file 07/2023 Does Anyone Keep You from Co ntacting Others or Doint Things Outside the Home? Not on file 08/21/2023 Physical Sign of Abuse Present Not on file 1 Housing Stability Answer Date Recorded Current Living Arrangements Not on file 07/2023 Potentially Unsafe Housing Conditions Not on raciel e 08/21/2023 Family and Community Support Answer Pan e Recorded Help with Day-to-Day Activities Not on file 08/21/2023 Lonely or Isolated Not on file 08/21/2023 Employment Answer Date Recorded Do you want help finding or keeping work or a willie b? Not on file 08/21/2023 Disabilities Answer Date Recorded Concentrating, Remembering, or Making Decisions Difficulty Not on file 08/21/2023 Doing Errands Independently Difficulty Not on fi le 08/21/2023 Education Answer Date Recorded Help with school or training? Not on file Preferred Language Not on file 08/21/2023 PHQ-2 Answer Date Recorded Retired PHQ-9: Brief Depression Severity Measure Score 1 12/09/2022 Comments No Sex and Gender Information Value Date Recorded Sex Assigned at Not on file Legal Sex Female 3:32 PM EDT Gender Identity Not on file Sexual Orientation Not on file documented as of this encounter Plan of Treatment Not on file documented as of this encounter Visit Diagnoses Not on filedocumented in this encounter Additional Health Concerns Infection Onset Date Last Indicated Resolved Time COVID (rule out) 04/13/2021 04/13/2021 04/20/2021 9:08 PM EDT COVID Screen (preop/placement) 05/30/2021 05/30/2021 05/30/2021 11:23 PM EDT documented as of this encounter Care Teams Certified Nuclear Medicine Technologist Relationship Specialty Start Date End Date Nicole Noriega MD PCP - General Family Medicine 08/25/17 07/20/23 documented as of this encounter
--- OUTSIDE RECORDS SUMMARY | 2021-04-13 09:51 | XMS_ITS | Encounter Summary ---
[facility] [address] [place] [address] Care Team Providers Care Developmental Specialist Name Role Phone Nicole Noriega MD Primary Care Provider [phone] Encounter Details Date Type Department Care Team (Late st Contact Info) Description 04/13/2021 9:51 AM EDT Hospital Encounter [facility] MEDICINE [address] [place] [address] Social History Tobacco Use Types Packs/Day [...] documented as of this encounter Care Teams Developmental Specialist Relationship Specialty Start Date End Date Nicole Noriega MD PCP - General Family Medicine 08/25/17 07/20/23 documented as of this encounter
--- OUTSIDE RECORDS SUMMARY | 2022-02-14 11:32 | XMS_ITS | Encounter Summary ---
[facility] [address] [place] [address] Care Team Providers Care Human Resource Manager Name Role Phone Nicole Noriega MD Primary Care Provider [phone] Encounter Details Date Type Department Care Team (Late st Contact Info) Description 02/14/2022 11:32 AM EDT Hospital Encounter [facility] MEDICINE [address] [place] [address] Social History Tobacco Use Types Packs/Day [...] on filedocumented in this encounter Care Teams Human Resource Manager Relationship Specialty Start Date End Date Nicole Noriega MD PCP - General Family Medicine 08/25/17 07/20/23 documented as of this encounter
--- OUTSIDE RECORDS SUMMARY | 2022-06-09 08:41 | XMS_ITS | Encounter Summary ---
[facility] Address [address] [place] [address] Care Team Providers Care Lint Cleaner Name Role Phone Nicole Noriega MD Primary Care Provider [phone] Encounter Details Date Type Department Care Team (Late st Contact Info) Description 06/09/2022 8:41 AM EDT Hospital Encounter [facility] CARE MEDICINE [address] [place] [phone] Social History Tobacco Use Types Packs/Day [...] 06/09/2022 9:04 AM EDT Jaqueline Chavez Krista [id number] 06/09/2022 Chest X-Ray PA & Lateral Indication: [...] on filedocumented in this encounter Care Teams Lint Cleaner Relationship Specialty Start Date End Date Nicole Noriega MD PCP - General Family Medicine 08/25/17 07/20/23 documented as of this encounter
--- OUTSIDE RECORDS SUMMARY | 2025-07-18 09:48 | XMS_ITS | Clinical Summary ---
Author Organization [facility] Address [address] [place] [address] Care Team Providers Care Azure Developer Name Role Phone Maico Wahl MD Primary [...] Influenza, intradermal, quad rivalent, preservative free 10/25/2019,08/28/2018 Giraffe Friend COVID-19 Vac cine (Purple Cap) 12+ 02/16/2021,01/26/2021 [...] Breast Care [facility] [place] [address] [address] [facility] [address] [place] [address] 01/13/2026 2:00 PM EST Office Visit [facility] [address] [facility], 2nd [place] [address] Lily Zuniga, POSTING CLERK [address] [facility] [address] [place] [address] Health Maintenance Due Date Last [...] 2014 Sigmoidoscopy 2014 [facility]-Colorectal Cancer Screening 2014 [id number] Vaccine (3 - Pfizer risk series) 03/16/2021 [...] this topic Insurance MEDICARE [place] Care Teams Azure Developer Relationship Specialty Start Date End Date Maico Wahl MD PCP - General Family Medicine 10/10/23
--- OUTSIDE RECORDS SUMMARY | 2025-07-18 09:48 | XMS_ITS | Referral Summary ---
Author Organization [employer] ([place], [place], [place], [place]) Address [address] [place] [address] Care Team Providers Care Reservation Manager Name Role Phone Unavailable Primary Care Provider [...] Date Lamin rded Speak language other than Sammarinese at home Not on file 12/01/2023 Want [...]
--- OUTSIDE RECORDS SUMMARY | 2025-07-18 09:48 | XMS_ITS | Encounter Summary ---
Author Organization Healthcare Address [address] [place] [address] Care Team Providers Care Philosophy And Religion Instructor Name Role Phone Maico Wahl MD Primary Care Provider Rashida vailable Reason for Referral * Consultation (Routine) - Closed Specialty Diagnoses / Procedures Referred By Contac t Referred To Contact Dentist / Pain Medicine Diagnoses JAMISON (obstructive sleep apnea) Debbie Rodriguez MD [address] [place] [address] Phone: tel: fax: Annalise Collins, DDS [address] [place] [address] Phone: tel: fax: Referral ID Status Reason Start Date Expiration Date Visits Re quested Visits Authorized [id number] Closed 02/28/2024 08/29/2025 1 1 Encounter Details Date Type Department Care Team (Late st Contact Info) Description 02/28/2024 Community [facility] [address] [place] [address] Debbie Rodriguez MD [address] [place] [address] JAMISON (obstructive sleep apnea) (Primary Dx) [...] Comprehensive Breast Care Center [facility] [address] [place] [address] 01/13/2026 2:00 PM EST Office [facility] [address] [facility], 2nd [place] [address] Lily Zuniga, SOUND EFFECTS MANAGER [address] [facility] [address] [place] [address] Scheduled Referrals Name Type Priority Associated Diagnoses [...] documented as of this encounter Care Teams Philosophy And Religion Instructor Relationship Specialty Start Date End Date Maico Wahl MD PCP - General Family Medicine 10/10/23 documented as of this encounter
--- OUTSIDE RECORDS SUMMARY | 2025-07-18 09:48 | XMS_ITS | Clinical Summary ---
Author Organization [employer] ([place], [place], [place], [place]) Address [address] [place] [address] Care Team Providers Care Hazardous Substances Scientist Name Role Phone Unavailable Primary Care Provider [...] Date Lamin rded Speak language other than Salvadorean at home Not on file 12/01/2023 Want [...]
--- OUTSIDE RECORDS SUMMARY | 2025-07-18 09:48 | XMS_ITS | Clinical Summary ---
Author Organization [facility] Address [address] [place] [address] Care Team Providers Care Crystalizer Operator Name Role Phone Unavailable Primary Care Provider [...] Diarrhea 11/03/2020 Overview (12/03/2020): Non-Regulatory IMO with [facility]/CMS designations Hypertrophic polyarthritis 11/03/2020 JAMISON (obstructive sleep [...] Immunizations Immunization Administration Dates Next Due COVID-19 (Referly) Purple Cap Monovalent 02/17/20 21,01/26/2021 Flu Vaccine [...] 02/10/2021, 11/26/2019 PAP SMEAR 04/27/2023 04/27/2020, 05/18/2016 TDAP/TD VACCINES (2 - Td or Tdap) 02/24/2025 02/24/2015 (Patient-Reported (Performed Externally)) COVID-19 Vaccine (3 - 2024-2 6 season) 2025 02/16/2021, 01/26/2021 INFLUENZA VACCINE 08/13/2025 08/17/2023, , 09/09/2022, Additional [...] 04/28/2020 Comment:THINPREP SPECIMEN SO U Narrative [facility] (AMBULATORY) - 04/29/2020 8:07 PM EDT Performed at: [address] [place] [id number] Biomedical Equipment Specialist: Emily Delaney MD, Phone: [phone] Specimen Comment: [id number] Specimen Comment: Source.............Cervix Specimen Comment: LMP / Prev Treat...None Specimen Comment: Other..............Post Menopausal Specimen Comment: No. of containers..01 ThinPrep Vial Nicole Aguilera MD PATHOLOGY/CYTOLOGY ORDERABLE S Final Result [facility] [address] [place] [address], [place] [phone] [facility] [address] [place] [id number], [place] [phone] * SCANNED - COLONOSCOPY (01/07/2020) Nicole Aguilera [...] breast at 11 where incision site was.; [id number] lump in breast DIAGNOSTIC RIGHT UNILATERAL MAMMOGRAM [...]
--- OUTSIDE RECORDS SUMMARY | 2025-07-18 09:48 | XMS_ITS | Encounter Summary ---
Author Organization Healthcare Address [address] [place] [address] Care Team Providers Care Information Technology Consultant Name Role Phone Maico Wahl MD Primary Care Provider Rashida vailable Encounter Details Date Type Department Care Team (Late Contact Info) Description 04/16/2024 Community [facility] [address] [place] [address] Maico Wahl MD Social History Tobacco Use [...] Breast Care Center [facility] [place] [address] [address] [facility] [address] [place] [address] 01/13/2026 2:00 PM EST Office [facility] [address] [facility], 2nd [place] [address] Lily Zuniga, ARCHIVAL STUDIES PROFESSOR [address] [facility] [address] [place] [address] documented as of this encounter Visit Diagnoses Not on filedocumented in this encounter Additional Health Concerns Assessment Noted Time A fall risk assessment has been complete d for the patient 02/09/2024 11:31 AM EDT A Body Mass Index follow-up plan has been documented for the patient 02/09/2024 12:04 PM EDT documented as of this encounter Care Teams Information Technology Consultant Relationship Specialty Start Date End Date Maico Wahl MD PCP - General Family Medicine 10/10/23 documented as of this encounter
[2025-07-18] MEDS: ALBUTEROL 0.083% 2.5 MG/3 ML NEB IH (10:23)
--- NOTE | 2025-07-18 10:23 | PC.NURSE ---
PFT completed without incident. Albuterol 0.083% given via HHN, per written protocol, Pt tolerated tx well.
== END 2025-07-18 23:59 | disposition home or self-care (01) ==
LOC: RT 09:44
PROVIDERS: PCP Family Medicine; Visit Provider Internal Medicine Pulmonary Disease
DX: R06.02 Shortness of breath (principal)
CPT/HCPCS: 94060; 94726; 94729

== ENCOUNTER 2025-08-12 14:00 | Outpatient (CLI) | payer MEDICARE, MEDICAID, SELFPAY ==
--- OUTSIDE RECORDS SUMMARY | 2021-04-13 09:45 | XMS_ITS | Encounter Summary ---
[facility] [address] [place] [address] Care Team Providers Care Brand Marketing Manager Name Role Phone Nicole Noriega MD Primary Care Provider [phone] Encounter Details Date Type Department Care Team (Late st Contact Info) Description 04/13/2021 9:45 AM EDT Hospital Encounter [facility] MEDICINE [address] [place] [address] Social History Tobacco Use Types Packs/Day [...] documented as of this encounter Care Teams Brand Marketing Manager Relationship Specialty Start Date End Date Nicole Noriega MD PCP - General Family Medicine 08/25/17 07/20/23 documented as of this encounter
--- OUTSIDE RECORDS SUMMARY | 2021-04-13 09:51 | XMS_ITS | Encounter Summary ---
[facility] Address [address] [place] [address] Care Team Providers Care Varnish Dipper Name Role Phone Nicole Noriega MD Primary Care Provider [phone] Encounter Details Date Type Department Care Team (Late st Contact Info) Description 04/13/2021 9:51 AM EDT Hospital Encounter [facility] MEDICINE [address] [place] [address] Social History Tobacco Use Types Packs/Day [...] on file documented as of this encounter Procedures Procedure Name Priority Date/Time Associated Diagnosis Comments XR CHEST 2 VW Routine 04/13/2021 10:00 AM EDT Pneumonia of left lower lobe due to infectious organism documented in this encounter Results * XR Chest 2 View (04/13/2021 10:00 AM EDT) Anatomical Region Laterality Modality Body N/A Radiographic Daija ging 04/13/2021 10:1 6 AM EDT Impressions 04/13/2021 10:17 AM EDT No evidence of active disease in the chest. A source of patient's hemoptysis is not demonstrated. This report was finalized on 04/13/2021 10:[address] Jamey Kendall II, MD. Narrative 04/13/2021 10:17 AM EDT XR CHEST 2 VW- REASON FOR EXAM: Hemoptysis; J18.9-Pneumonia, unspecified organism Comparison:None FINDINGS: The cardiac silhouette and mediastinum are normal in size and configuration. The lungs are both well-aerated and clear. There are no pleural effusions in the lung bases. No consolidated areas of pneumonia are identified. The bones and soft tissues are unremarkable. Procedure Note Jamey Kendall II, MD - 04/13/2021 XR CHEST 2 VW- REASON FOR EXAM: Hemoptysis; J18.9-Pneumonia, unspecified organism Comparison:None FINDINGS: The cardiac silhouette and mediastinum are normal in size and configuration. The lungs are both well-aerated and clear. There are no pleural effusions in the lung bases. No consolidated areas of pneumonia are identified. The bones and soft tissues are unremarkable. IMPRESSION: No evidence of active disease in the chest. A source of patient's hemoptysis is not demonstrated. This report was finalized on 04/13/2021 10:[address] Jamey Kendall II, MD. Nicole Noriega MD IMG DIAGNOSTIC IMAGING ORDER MAYKEL Final Result documented in this encounter Visit Diagnoses Not on filedocumented in this encounter Additional Health Concerns Infection Onset Date Last Indicated Resolved Time COVID (rule out) 04/13/2021 04/13/2021 04/20/2021 9:08 PM EDT COVID Screen (preop/placement) 05/30/2021 05/30/2021 05/30/2021 11:23 PM EDT documented as of this encounter Care Teams Varnish Dipper Relationship Specialty Start Date End Date Nicole Noriega MD PCP - General Family Medicine 08/25/17 07/20/23 documented as of this encounter
--- OUTSIDE RECORDS SUMMARY | 2022-02-14 11:32 | XMS_ITS | Encounter Summary ---
[facility] [address] [place] [address] Care Team Providers Care National Opelint Analyst Name Role Phone Nicole Noriega MD Primary Care Provider [phone] Encounter Details Date Type Department Care Team (Late st Contact Info) Description 02/14/2022 11:32 AM EDT Hospital Encounter [facility] MEDICINE [address] [place] [address] Social History Tobacco Use Types Packs/Day [...] on filedocumented in this encounter Care Teams National Opelint Analyst Relationship Specialty Start Date End Date Nicole Noriega MD PCP - General Family Medicine 08/25/17 07/20/23 documented as of this encounter
--- OUTSIDE RECORDS SUMMARY | 2022-06-09 08:41 | XMS_ITS | Encounter Summary ---
Author [facility] Address [address] [place] [address] Care Team Providers Care Oral Surgery Technician Name Role Phone Nicole Noriega MD Primary Care Provider [phone] Encounter Details Date Type Department Care Team (Late st Contact Info) Description 06/09/2022 8:41 AM EDT Hospital Encounter [facility] MED[facility]INE [address] [place] [phone] Social History Tobacco Use Types Packs/Day [...] 06/09/2022 9:04 AM EDT Jaqueline Chavez Krista [id number] 06/09/2022 Chest X-Ray PA & Lateral Indication: [...] on filedocumented in this encounter Care Teams Oral Surgery Technician Relationship Specialty Start Date End Date Nicole Noriega MD PCP - General Family Medicine 08/25/17 07/20/23 documented as of this encounter
--- OUTSIDE RECORDS SUMMARY | 2025-08-25 10:54 | XMS_ITS | Encounter Summary ---
Author Organization Healthcare Address [address] [place] [address] Care Team Providers Care Lab Scientist Name Role Phone Maico Wahl MD Primary Care Provider Rashida vailable Reason for Referral * Consultation (Routine) - Closed Specialty Diagnoses / Procedures Referred By Contac t Referred To Contact Dentist / Pain Medicine Diagnoses JAMISON (obstructive sleep apnea) Debbie Rodriguez MD [address] [place] [address] Phone: tel: fax: Annalise Collins, DDS [address] [place] [address] Phone: tel: fax: Referral ID Status Reason Start Date Expiration Date Visits Re quested Visits Authorized [id number] Closed 02/28/2024 08/29/2025 1 1 Encounter Details Date Type Department Care Team (Late st Contact Info) Description 02/28/2024 Community [facility] [address] [place] [address] Debbie Rodriguez MD [address] [place] [address] JAMISON (obstructive sleep apnea) (Primary Dx) [...] Breast Care Center [facility] [address] [place] [address] 01/13/2026 2:00 PM EST [facility] [address] [facility], 2nd [place] [address] Lily Zuniga, EQUIPMENT SERVICE LEAD [address] [facility] [address] [place] [address] Scheduled Referrals Name Type Priority Associated Diagnoses [...] documented as of this encounter Care Teams Lab Scientist Relationship Specialty Start Date End Date Maico Wahl MD PCP - General Family Medicine 10/10/23 documented as of this encounter
--- OUTSIDE RECORDS SUMMARY | 2025-08-25 10:54 | XMS_ITS | Clinical Summary ---
Author Organization [facility] ([place], [place], [place], [place]) Address [address] [place] [address] Care Team Providers Care Breast Surgeon Name Role Phone Unavailable Primary Care Provider [...] Date Lamin rded Speak language other than Irish at home Not on file 12/01/2023 [...] 2) 2019 COVID-19 VACCINE (1 - season) 2025 Influenza Vaccine (#1) 2025 Lipid Panel 08/02/2027 08/02/2022 Insurance MEDICARE PART A B MEDICAID OF [place]
--- OUTSIDE RECORDS SUMMARY | 2025-08-25 10:54 | XMS_ITS | Clinical Summary ---
Author Organization [facility] Address [address] [place] [address] Care Team Providers Care Train Control Electronic Technician Name Role Phone Unavailable Primary Care [...] 11/03/2020 Overview (12/03/2020): Non-Regulatory IMO with [facility]/CMS designations Hypertrophic polyarthritis 11/03/2020 JAMISON (obstructive sleep [...] Immunizations Immunization Administration Dates Next Due COVID-19 (remocean) Purple Cap Monovalent 02/17/20 21,01/26/2021 Flu Vaccine [...] WELLNESS VISIT 02/14/2023 02/14/2022 , 02/10/2021, 11/26/2019 TDAP/TD VACCINES (2 - Td or Tdap) 02/24/2025 02/24/2015 (Patient-Reported (Performed Externally)) INFLUENZA VACCINE 06/13/2025 08/17/2023, , 09/09/2022, Additional history exists MAMMOGRAM 01/08/2026 01/08/2024, 12/15, 12/29/2022, Additional history exists COLONOSCOPY 01/07/2030 01/07/2020, 01/07/2020 COLORECTAL CANCER SCREENING 01/07/2030 Procedures Procedure Name Priority Date/Time Associated Diagnosis Comments SCANNED - COLONOSCOPY 01/07/2020 MAMMO DIAGNOSTIC DIGITAL TOMOSYNTHESIS RIGHT W CAD Routine 03/07/2017 10:05 AM EDT Breast mass in female from Last 3 Months or Most Recently Relevant to Health Maintenance Results * SCANNED - COLONOSCOPY (01/07/2020) Nicole Aguilera [...] breast at 11 where incision site was.; [id number] lump in breast DIAGNOSTIC RIGHT UNILATERAL MAMMOGRAM [...] to further evaluate. No fluid collection noted. Nicole Aguilera MD [facility] [place] [facility]AMMO[facility]AP[facility] ORDERABLES F inal Result from Last 3 Months or Most Recently Relevant to Health Maintenance Insurance MEDICARE A & B MEDICAID [place]
--- OUTSIDE RECORDS SUMMARY | 2025-08-25 10:54 | XMS_ITS | Encounter Summary ---
Author Organization Healthcare Address [address] [place] [address] Care Team Providers Care Certified Nutritionist Name Role Phone Maico Wahl MD Primary Care Provider Rashida vailable Encounter Details Date Type Department Care Team (Late Contact Info) Description 04/16/2024 Community [facility] [address] [place] [address] Maico Wahl MD Social History Tobacco Use [...] [facility] [place] [address] [address] [facility] [address] [place] [address] 01/13/2026 2:00 PM EST Office Visit [facility] [address] [facility] [place] [address] Lily Zuniga, HEALTH INFORMATION CLERK [address] [facility] [address] [place] [address] documented as of this encounter Visit Diagnoses Not on filedocumented in this encounter Additional Health Concerns Assessment Noted Time A fall risk assessment has been complete d for the patient 02/09/2024 11:31 AM EDT A Body Mass Index follow-up plan has been documented for the patient 02/09/2024 12:04 PM EDT documented as of this encounter Care Teams Certified Nutritionist Relationship Specialty Start Date End Date Maico Wahl MD PCP - General Family Medicine 10/10/23 documented as of this encounter
--- OUTSIDE RECORDS SUMMARY | 2025-08-25 10:54 | XMS_ITS | Clinical Summary ---
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 02/25/2021 HNP (herniated nucleus pulposus), cervical 02/25 Hypertrophic polyarthritis 11/03/2020 JAMISON (obstructive sleep apnea) 06/05/2019 Recurrent major depressive disorder, in partial remission 12/05/2018 Palpitations 10/23/2018 Fibromyalgia 08/30/2016 Hemangioma 08/30/2016 Lupus 08/30/2016 06/22/2023 Microscopic hematuria 07/26/2016 Rheumatoid arthritis 11/13/2015 06/22/2023 Resolved Problems Problem Noted Date Diagnosed Date Resolved Date Clinical diagnosis of severe acute respiratory syndrome coronavirus 2 (SARS-CoV-2) disease 11/15/2021 08/03/[address] scan of lung 07/02/2021 Overview (12/28/2021): Unresolving right lower lobe infiltrate Immunizations Immunization Administration Dates Next Due Influenza, injectable, MDCK, preservative free, quadrivalent 10/25/2019,08/28/2018 Influenza, injectable, quadrivalent 09/09/2022,1 Influenza, injectable, quadr ivalent, preservative free 08/18/2023,10/13/2021,07/28/2020,2016,08/25/2016 Influenza, intradermal, quad rivalent, preservative free 10/25/2019,08/28/2018 [place] COVID-19 Vac cine (Purple Cap) 12+ 02/16/2021,01/26/2021 [...] [facility] [place] [address] [address] [facility] [address] [place] [address] 01/13/2026 2:00 PM EST Office Visit [facility] [address] [facility] [place] [address] Lily Zuniga, FUEL CELL ENGINEER [address] [facility] [address] [phone] Health Maintenance Due Date Last Done Comments [...] 2014 Sigmoidoscopy 2014 [facility]-Colorectal Cancer Screening 2014 [id number] Vaccine (3 - Pfizer risk series) 03/16/2021 [...] this topic Insurance MEDICARE [place] Care Teams Duralumin Mechanic Relationship Specialty Start Date End Date Maico Wahl MD PCP - General Family Medicine 10/10/23
--- OUTSIDE RECORDS SUMMARY | 2025-08-25 10:54 | XMS_ITS | Referral Summary ---
Author Organization [employer] ([place], [place], [place], [place]) Address [address] [place] [address] Care Team Providers Care Tandem Mill Roller Name Role Phone Unavailable Primary Care Provider [...] Date Lamin rded Speak language other than Turkish at home Not on file 12/01/2023 Want [...]
== END 2025-08-12 23:59 | disposition home or self-care (01) ==
LOC: LAB.DROPOF 08-25 10:42
PROVIDERS: PCP Family Medicine; Visit Provider Family Medicine
DX: N39.0 Urinary tract infection, site not specified (principal)
CPT/HCPCS: 87086